=== PATIENT | male | born 1985 | race Caucasian/White ===

== ENCOUNTER 2018-07-02 15:04 | Emergency (ER) | payer MEDICAID, OTHER, SELFPAY ==
[2018-07-02] VITALS (8 sets, daily range): BP systolic 110–135; BP diastolic 53–83; PULSE 41–82; RESP 16–20; TEMP 36.8–37; O2SAT 97–100; BMI 19.5
--- NOTE | 2018-07-02 15:16 | CT_ITS ---
STUDY: CT ABDOMEN AND PELVIS WITH CONTRAST REASON FOR EXAM: Male, 32 years old. Abdominal pain. RADIATION DOSAGE (If Supplied By Facility): CTDIvol = ( ) mGy, DLP = ( ) mGycm TECHNIQUE: Transaxial images were obtained from the dome of the diaphragm to the symphysis pubis with oral contrast. 100 ml of Isovue 300 contrast was administered. Sagittal and coronal images were reconstructed. Individualized dose optimization techniques were used for this CT. COMPARISON: None. FINDINGS: The visualized lung bases are unremarkable. The visualized portions of the heart are within normal limits. Abnormal appearance of the liver which is heterogeneous and enlarged, and there is edema surrounding the hepatic radicles. This appearance is nonspecific but suggests hepatitis. Normal gallbladder and extrahepatic biliary system. Normal spleen. Normal pancreas. Normal bilateral adrenal glands. Normal right kidney. Normal left kidney. Evaluation of the GI tract is limited because although oral contrast was given, apparently the patient was not scanned with any delay in contrast is seen only in the stomach and duodenum. There are no dilated loops of bowel or evidence for obstruction but cannot exclude segments of bowel wall thickening. Appendix suboptimally seen but grossly negative. Normal abdominal aorta. Normal inferior vena cava. Normal retroperitoneum. Normal urinary bladder. There is enlargement of the prostate gland. Trace free fluid. Normal abdominal wall. Normal osseous structures. CT/Abdomen/Pelvis WITH Contrast IMPRESSION: Enlarged and probably edematous liver suspicious for hepatitis. Electronically Signed: Celso Herring MD at 17:47 EST , Service support ,
[2018-07-02] MEDS: 0.9% Normal Saline 1,000 ML 125 ML IV (15:42)
[2018-07-02] MEDS: Ondansetron 4 MG/2 ML Vial IV (15:42)
[2018-07-02] MEDS: HYDROmorphone 1 MG/ML Syringe IV ×3 (15:43→19:44)
[2018-07-02 15:50] LABS: Absolute Lymphocyte Count 0.96 X10^3/ul (0.83-4.51); Absolute Neutrophil Count 10.8 X10^3/uL (2.0-7.7); Basophil# 0.02 X10^3/uL; Basophil% 0.2 % (0-1); Eosinophil# 0.02 X10^3/uL; Eosinophils% 0.2 % (0-5); Hematocrit 44.3 % (40-54); Hemoglobin 15.2 g/dl (13.0-16.5); Lymphocyte # 0.96 X10^3/ul (4.0); Lymphocyte % 7.8 % (19-41); Mean Corp Hgb Conc 34.3 g/gl (32-36); Mean Corpuscular Hgb 33.3 pg (27.0-32.0); Mean Corpuscular Volume 96.9 fL (80-94); Mean Platelet Vol. 9.5 fl (6.2-12.0); Monocyte# 0.54 X10^3/uL; Monocyte% 4.4 % (0-10); Neutrophil # 10.82 X10^3/uL (2.7-7.7); Neutrophil % 87.2 % (47-70); Platelet Count 357 K/mm3 (150-450); RBC Distribution Width CV 11.8 % (11.6-14.6); RBC Distribution Width SD 41.6 fl (35.1-43.9); Red Blood Count 4.57 M/mm3 (4.6-6.2); White Blood Count 12.4 K/mm3 (4.4-11.0)
[2018-07-02 15:54] LABS: POSITIVE COUNT NO; POSITIVE DIFFERENTIAL NO; POSITIVE MORPHOLOGY NO
[2018-07-02 16:06] LABS: ALB/GLOB Ratio 1.3 RATIO (0.9-2.4); AST(SGOT) 22 U/L (15-37); Alanine Aminotransfer ALT/SGPT 41 U/L (16-61); Albumin, Serum 4.5 g/dL (3.2-5.0); Alkaline Phosphatase 88 U/L (45-117); Anion Gap 7 (5-15); BUN 9 mg/dL (7-18); BUN/Creat Ratio 12.4 RATIO (10-20); Calcium,Total 9.4 mg/dL (8.5-10.1); Chloride 107 mmol/L (98-107); Creatinine, Serum 0.73 mg/dL (0.70-1.30); EST Glomerular Filtration Rate 131 mL/min (>60); Est Glom Filt Rate - Afr Amer 158 mL/min (>60); Estimated Creatinine Clearance 146.37 ml/min; Globulin 3.4 g/dL (2.2-4.2); Glucose 136 mg/dL (74-106); Lipase 101 U/L (73-393); Potassium 4.2 mmol/L (3.5-5.1); Protein, Total 7.9 g/dL (6.4-8.2); Sodium Level 142 mmol/L (136-145)
--- NOTE | 2018-07-02 16:17 | ED.RN ---
[facility] 2.[address] CALL[address] THE LAB. DR GIVENS AWARE
[2018-07-02 16:18] LABS: Lactic Acid 2.2 mmol/L (0.4-2.0)
--- NOTE | 2018-07-02 18:12 | US_ITS ---
STUDY: ABDOMINAL ULTRASOUND - RIGHT UPPER QUADRANT REASON FOR VISIT: Male, 32 years old. Upper abdominal pain. TECHNIQUE: Ultrasound evaluation of the right upper quadrant was performed with real-time and static betancourt-scale imaging. TECHNICAL QUALITY: Adequate. COMPARISON: None. FINDINGS: Liver: The liver measures 20.1 cm. There is normal echogenicity of the liver. The bile ducts are within normal limits. There is hepatic color flow. The direction of portal flow is hepatopetal. There is no demonstrated mass lesion. Gallbladder: Normal distended gallbladder. The gallbladder wall measures 2.0 mm. There is a negative sonographic Moore's sign. There is trace pericholecystic fluid. There are no gallstones. Common Bile Duct (C.B.D.): The common bile duct measures 3.2 mm. Pancreas: Normal size of the head, body and tail of the pancreas. There is normal echogenicity of the pancreas. There is no demonstrated pancreatic mass or cyst. Right Kidney: Normal size of the right kidney. The right kidney measures 12.7 cm in length. Normal renal cortex.There is no demonstrated renal mass or cyst. There is no right hydronephrosis. US/Gallbladder IMPRESSION: Trace pericholecystic fluid, this may be reactive. Electronically Signed: Radha Aparicio MD at 19:13 EST Tel , Service support ,
[2018-07-02 19:39] LABS: Bacteria 0 SEEN /hpf (None Seen); Mucous, Urine 0 SEEN /hpf (<or=2+); Red Blood Cells-Urine 0 SEEN /hpf (0-5)
[2018-07-02 19:42] LABS: Color, Urine Yellow (Yellow); Glucose, Dipstick Normal (Normal); Ketone-Dipstick 5 mg/dl (Negative); Leukocyte Esterase-Dipstick 25 /ul (Negative); Nitrite-Dipstick Negative (Negative); Occult Blood-Urine Negative /ul (Negative); Protein-Dipstick 15 mg/dl (Negative); Specific Gravity, Urine 1.005 (1.002-1.030); Urine Bilirubin Dipstick Negative (Negative); Urine Clarity Clear (Clear); Urine Urobilinogen 1 mg/dl (Normal)
[2018-07-02 19:43] LABS: Reflex Lactate? Y
[2018-07-02 19:54] LABS: Squamous Epithelial Cells - UA 0-5 SEEN /hpf (0-5); White Blood Cells 0-5 SEEN /hpf (0-5)
--- NOTE | 2018-07-02 20:21 | ED.VISSUMM ---
- ER Visit Summary Date of Service: 07/02/18 Chief Complaint: [Abdominal pain] History of Present Illness: The patient is a 32 M [presents with abdominal pain that started around 8 or 9 AM this morning. Patient states it gradually worsened and became severe. Patient rates his pain as an 8 out of 10 currently. Patient states that he vomited 5-6 times. Patient denies any diarrhea. Denies any fever. Patient is never had pain like this before. Patient has no medical history. Patient denies any urinary symptoms. He denies any blood in his stool or black tarry stools.] Physical Examination: [HEENT-PERRLA, EOMI. Cranial nerves II through XII grossly intact. TMs clear. Mucous membranes moist. No adenopathy. Cardiovascular-regular rate and rhythm without murmur or ectopy Lungs-clear to auscultation, chest wall stable without crepitus or subcu emphysema Abdomen-normoactive bowel sounds, soft. Patient has diffuse tenderness palpation with some guarding. No rebound, rigidity, or perineal signs. Extremities-intact ?4, normal range of motion, normal pulses, atraumatic] Test Results: [CBC with differential obtained showed a white count 12.4, hemoglobin 15, hematocrit 44, platelets 357. Chemistries unremarkable. LFTs were unremarkable other than a slightly elevated total bilirubin of 1.8. Lipase was 101. Lactate was elevated 2.2. CT scan of the abdomen pelvis showed enlarged and edematous liver suspicious for hepatitis. Ultrasound of the gallbladder was obtained after discussing case with hospitalist which showed a normal gallbladder and only trace pericholecystic fluid which may be reactive.] Emergency Department Course and Treatment: [Patient was medicated with Dilaudid and Zofran multiple times. Patient continues to complain of significant pain. Initially I discussed case with hospitalist to admit patient here who asked that I discussed case with general surgeon on-call. I spoke with Dr. Prieto who asked that we transfer patient to tertiary care center. Patient would like to go to [facility]. I discussed case with [facility] who accepted transfer of patient.] Treatment Plan: [Transfer to [facility]] Disposition: [Transfer] Impression: [Abdominal pain-etiology uncertain Intractable abdominal pain Abnormal appearance of liver on CT scan] This note was generated with [employer] software. It may contain incorrect words, spelling, and punctuation that were not noted in review of the chart prior to signing ED Disposition - Plan for ED Patient: Chief Complaint: Abd Pain Referrals: [facility] [Primary Care Provider] -
--- NOTE | 2018-07-02 20:24 | ED.DCSUM_ITS ---
- ER Visit Summary Date of Service: 07/02/18 Chief Complaint: [Abdominal pain] History of Present Illness: The patient is a 32 M [presents with abdominal pain that started around 8 or 9 AM this morning. Patient states it gradually worsened and became severe. Patient rates his pain as an 8 out of 10 currently. Patient states that he vomited 5-6 times. Patient denies any diarrhea. Denies any fever. Patient is never had pain like this before. Patient has no medical history. Patient denies any urinary symptoms. He denies any blood in his stool or black tarry stools.] Physical Examination: [HEENT-PERRLA, EOMI. Cranial nerves II through XII grossly intact. TMs clear. Mucous membranes moist. No adenopathy. Cardiovascular-regular rate and rhythm without murmur or ectopy Lungs-clear to auscultation, chest wall stable without crepitus or subcu emphysema Abdomen-normoactive bowel sounds, soft. Patient has diffuse tenderness palpation with some guarding. No rebound, rigidity, or perineal signs. Extremities-intact ?4, normal range of motion, normal pulses, atraumatic] Test Results: [CBC with differential obtained showed a white count 12.4, hemoglobin 15, hematocrit 44, platelets 357. Chemistries unremarkable. LFTs were unremarkable other than a slightly elevated total bilirubin of 1.8. Lipase was 101. Lactate was elevated 2.2. CT scan of the abdomen pelvis showed enlarged and edematous liver suspicious for hepatitis. Ultrasound of the gallbladder was obtained after discussing case with hospitalist which showed a normal gallbladder and only trace pericholecystic fluid which may be reactive.] Emergency Department Course and Treatment: [Patient was medicated with Dilaudid and Zofran multiple times. Patient continues to complain of significant pain. Initially I discussed case with hospitalist to admit patient here who asked that I discussed case with general surgeon on-call. I spoke with Dr. Prieto who asked that we transfer patient to tertiary care center. Patient would like to go to [facility]. I discussed case with [facility] who accepted transfer of patient.] Treatment Plan: [Transfer to [facility]] Disposition: [Transfer] Impression: [Abdominal pain-etiology uncertain Intractable abdominal pain Abnormal appearance of liver on CT scan] This note was generated with [employer] software. It may contain incorrect words, spelling, and punctuation that were not noted in review of the chart prior to signing ED Disposition - Plan for ED Patient: Chief Complaint: Abd Pain Referrals: [facility] [Primary Care Provider] -
[2018-07-02 22:32] LABS: Lactic Acid 1.8 mmol/L (0.4-2.0)
--- OUTSIDE RECORDS SUMMARY | 2018-08-18 13:12 | XMS RPT_ITS ---
:1985 Author Organization OH[facility] Care Team Providers Name Role Phone [facility] Unavailable Ungur, Remus Attending Unavailable Isckarus, Mansour Attending [facility] [place] [facility] Un[facility] Isckarus, Mansour Attending [facility] Unavailable Isckarus, Mansour Consulting Unavailable Ana Maria Lynch Referring Unavailable Isckarus, Mansour Attending [facility] Unavailable Isckarus, Mansour Consulting Unavailable OFGUMAROWUJOSECASE Admitting Unavailable OFUNGWU, CASE Attending Unavailable UNGUR, REMUS A Referring Unavailable GLORIA ROCHA Consulting Unavailable OFUNGPratimaU, CASE Admitting Unavailable OFUNGDOLORES, CASE Attending Unavailable IMCA Referring Unavailable GARLAND KILPATRICK Primary Care Unavailable Azam ROCHA Consulting Unavailable PROBLEMS PROBLEMS DATE TYPE CONDITION / CODE ATTENDING STATUS SOURCE 08/10/2018 Unknown D75.89 - Other Isckarus, Active Adah specified [facility] blood and Repository blood-forming organs / D75.89(ICD-10) 08/10/2018 Unknown E80.6 - Other Isckarus, Active Adah disorders of [facility] metabolism / Repository E80.6(ICD-10) 08/10/2018 Unknown Z83.2 - Family Isckarus, Active Adah history of Counts include 234 beds at the [facility] blood and Repository blood-forming organs and certain disorders involving the immune mechanism / Z83.2(ICD-10) 07/02/2018 Active Unknown / OFUNGWU, Active [facility] UNK(Unknown) [facility] Repository 07/02/2018 Admitting Unknown / OFUNGWU, Active [facility] diagnosis UNK(Unknown) [facility] Repository PROCEDURES PROCEDURES No Procedure Records FoundRESULTS RESULTS ONCOLOGY VISIT REPORT Observed: 08/11/2018 Status: F Source: [place] 12:22 PM [facility] [place] Medical Oncology [address] [place] [address] OFFICE VISIT Date of Service: 08/11/18 1206 MR#: [id number] Acct: [id number] Name: SATURNINO QUINONEZ Rep #: [id number] : 1985 From: Kathleen Gonzalez MD Age/Sex: 32/M Location: OMD Status: Signed - Problem List (1) Macrocytosis Status: Acute (2) Family history of hereditary spherocytosis Status: Chronic Comment: Negative hemolysis workup in July 2018 - Date of Service Date of Service:: 08/11/18 - Chief Complaint Abnormal blood work - History of Present Illness Patient is a 32-year-old, who was hospitalized at [facility] in June of 2018 with an episode of abdominal pain. No specific diagnosis was made. The patient was noted to have a macrocytosis and a bilirubinemia. Patient reports a history of hereditary spherocytosis affecting his ankle on his mother's side. He has no prior history of anemia or blood transfusion, he father at the 9-year-old daughter not anemic. He denied excessive alcohol consumption since he left service . - Past Medical/Social History Social History Smoking Status Current every day smoker Review of Systems Comment: See my note of August 03, 2018 Vital Signs Height 6 ft 3.5 in Weight: 75.568 kg Weight in Pounds 166.6 lbs Pulse Ox 100 - Physical Exam General: Alert, Oriented x3, No apparent distress, - - ote of August 03, 2018 For a full exam see my n Laboratory Data: Labs reviewed in EMR Laboratory Tests WBC Hgb Hct MCV Plt Count Absolute Neuts (auto) Retic Count Assessment and Plan 32-year-old male with a family history of hereditary spherocytosis (uncle on mother side) noted during a recent hospitalization to have a macrocytosis with a mild hyperbilirubinemia. Plan: 1. Evaluation in July 2018 shows no anemia nor any evidence to suggest hemolysis. No further workup indicated from hematology. 2. Combined bilirubinemia (direct and indirect) Consistent with hepatic origin, no further workup from hematology indicated . 3. Mild macrocytosis in absence of cytopenias Suggestive of a chronic hepatic disease. Patient has a past history of excessive alcohol consumption and reports he has Cut down significantly to occasional since he left service. Defer to primary care for any further management. No recommendations from hematology apart from complete abstinence from alcohol and other potentially toxic recreational use or exposure. Impression and plan discussed with patient. No further followup was hematology indicated Medications: Prescriptions This Visit Medication Instructions Recorded Famotidine [Acid Water Treatment Technician] 10 mg PO DAILY 08/03/18 Multivitamin [Multiple Vitamins] 1 each PO DAILY 08/03/18 Primary Care Provider: [facility] Referring Provider: 08/11/18 1222 <Electronically signed by Kathleen Gonzalez MD> Date Kathleen Gonzalez MD Cosigner Signature: Date (if applicable) CC: Ana Maria Cason DIRECT ANTIGLOBULIN Collected: 08/03/2018 Status: F Source: [place]UA[place] LONNY TABITHA 3:28 PM [facility] Order Comment: Reason for Laboratory Test . TYPE CODE TESTS RESULT OUT OF RANGE REFERENCE UNITS LAB B100.6950 NEGATIVE Normal DIRECT NEG LONNY= w/POLYSPECIF IC Performed By: #### B100.6650 #### [facility] [address] [place], [place], [id number] CBC W/DIFF, AUTOMATED Collected: 08/03/2018 Status: C Source: [place] 3:28 PM [facility] Order Comment: PATHOLOGY TO REVIEW SMEAR TO RULE OUT SHEROCYTOSIS TYPE CODE TESTS RESULT OUT OF RANGE REFERENCE UNITS LAB L100.1000 4.4-11.0 K/mm3 Normal WBC 7.3 LAB L100.1200 4.6-6.2 M/mm3 Low RBC 4.52 LAB L100.1300 13.0-16.5 g/dl Normal HGB 14.7 LAB L100.1400 40-54 % Normal HCT 44.2 LAB L100.1500 80-94 fL High MCV 97.8 LAB L100.1600 27.0-32.0 pg High MCH 32.5 LAB L100.1700 32-36 g/gl Normal MCHC 33.3 LAB L100.1810 11.6-14.6 % Low RDW CV 11.5 LAB L100.1820 35.1-43.9 fl Normal RDW SD 41.0 LAB L100.1900 150-450 K/mm3 Normal PLT 297 LAB L100.2000 6.2-12.0 fl Normal MPV 9.7 LAB L100.2100 47-70 % Normal NEUT% 63.8 LAB L100.2200 19-41 % Normal LY% 23.4 LAB L100.2300 0-10 % Normal MONO% 8.6 LAB L100.2400 0-5 % Normal EO% 3.7 LAB L100.2500 0-1 % Normal BASO% 0.4 LAB L100.2550 0.0-0.9 % Normal IM GRAN % 0.100 Result Comment: IG% - Immature Granulocytes (promyelocytes, myelocytes and metamyelocytes) > 1% indicates that a LEFT SHIFT is Present. LAB L100.2620 2.0-7.7 X10 3/uL Normal Absolute Neut 4.7 LAB L100.2720 0.83-4.51 X10 3/ul Normal Absolute Lymph 1.71 LAB L100.9900 Normal PATH REV Reviewed Result Comment: RBC - Macrocytosis Spherocytes are no seen. WBC - unremarkable. WBC count is compatible as reported above. Platelets - Adequate Clinical correlation necessary. Tomas Marroquin M.D. 08/04/18 This case was reviewed with Dr. Fernandez who concurs with the above diagnosis. AMENDED REPORT 08/04/18 1419 PATH REV previously reported as: November Performed By: #### L100.0100, L100.9950 #### [facility] [address] [place], [address] RETIC PANEL Collected: 08/03/2018 Status: F Source: [place] 3:28 PM [facility] Order Comment: PATHOLOGY TO REVIEW SMEAR TO RULE OUT SHEROCYTOSIS TYPE CODE TESTS RESULT OUT OF RANGE REFERENCE UNITS LAB L101.0000 0.5-1.5 % High RETIC 2.00 LAB L101.0060 3.00-15.90 % IM Normal RET FRACTION 5.50 LAB L101.0090 30-35 pg Normal RET-HE 34.4 LAB L101.0110 1.0-7.9 % Normal IPF 2.3 Result Comment: Low PLT + Low IPF suggest a bone marrow production disorder Low PLT + high IPF suggests peripheral destruction (e.g.ITP, TTP, HIT, DIC, autoimmune) or bone marrow recovery Trending of serial IPF measurements is recommended when evaluating for bone marrow respones Value above normal range indicates an increase in RBC cellular response from bone marrow. Performed By: #### L100.0100, L100.9950 #### [facility] [address] [place], [address] VITAMIN B12 Collected: 08/03/2018 Status: F Source: [place] 3:28 PM [facility] Order Comment: Reason for Laboratory Test . TYPE CODE TESTS RESULT OUT OF REFERENCE UNITS RANGE LAB L503.0105 211-911 pg/mL High Vitamin B12 934 Performed By: #### L503.0105 #### [facility] [address] [place], [address] COMPREHENSIVE METABOLIC Collected: 08/03/2018 Status: F Source: [facility] 3:28 PM [facility] Order Comment: Reason for Laboratory Test . Serial Specimen #1, #2 or #3? 1 Is Patient Taking Vitamins or Folic Acid Supplements? N TYPE CODE TESTS RESULT OUT OF RANGE REFERENCE UNITS LAB L501.0100 74-106 mg/dL Normal GLU 97 Result Comment: Please note revised GLUCOSE reference range effective 2017. LAB L501.1000 7-18 mg/dL Normal BUN 9 LAB L501.1100 0.70-1.30 mg/dL Normal CREAT,SERUM 0.86 Result Comment: The validity of the calculated GFR AND GFRAA in patients over 70 years has not been determined. Clinical correlation is essential. LAB L501.1110 >60 mL/min Normal EST GFR 108 Result Comment: Non- GFR Calc LAB L501.1115 >60 mL/min Normal EST GFR - AA 130 Result Comment: GFR Calc LAB L501.1255 ml/min Normal Estimated CRCL 129.36 LAB L501.1300 10-20 RATIO BUN/CRE Normal 10.5 LAB L501.1500 6.4-8. g/dL 2 T PROT Normal 7.3 LAB L501.1800 3.2-5. g/dL 0 ALB Normal 4.2 LAB L501.1950 2.2-4. g/dL 2 GLOB Normal 3.1 LAB L501.2000 0.9-2. RATIO 4 A/G Normal 1.4 LAB L501.2200 8.5-10 mg/dL .1 CA Normal 8.7 LAB L501.4100 15-37 U/L AST Normal 29 LAB L501.4305 45-117 U/L ALK P Normal 85 LAB L501.4405 16-61 U/L ALT Normal 61 LAB L501.4600 0.20-1 mg/dL High .00 T BILI 1.40 LAB L501.5300 136-14 mmol/L 5 NA Normal 140 LAB L501.5600 3.5-5. mmol/L 1 K Normal 4.0 LAB L501.5900 98-107 mmol/L CL Normal 103 LAB L501.6100 21.0-3 mmol/L 2.0 CO2 Normal 28.0 LAB L501.6200 5-15 GAP Normal 9 Performed By: #### L500.4050, L501.4700, L501.9520, L504.2610, L506.0250 #### [facility] [address] [place], [place], [id number] BILIRUBIN, DIRECT Collected: 08/03/2018 Status: F Source: [place] 3:28 PM [facility] Order Comment: Reason for Laboratory Test . Serial Specimen #1, #2 or #3? 1 Is Patient Taking Vitamins or Folic Acid Supplements? N TYPE CODE TESTS RESULT OUT OF RANGE REFERENCE UNITS LAB L501.4700 0.00-0.30 mg/dL High D BILI 0.53 Performed By: #### L500.4050, L501.4700, L501.9520, L504.2610, L506.0250 #### [facility] [address] [place], [address] THYROID STIM HORMONE Collected: 08/03/2018 Status: F Source: [place] (TSH) 3:28 PM [facility] Order Comment: Reason for Laboratory Test . Serial Specimen #1, #2 or #3? 1 Is Patient Taking Vitamins or Folic Acid Supplements? N TYPE CODE TESTS RESULT OUT OF RANGE REFERENCE UNITS LAB L501.9520 0.358-3.74 uIU/mL Normal TSH 1.05 Performed By: #### L500.4050, L501.4700, L501.9520, L504.2610, L506.0250 #### [facility] [address] [place], [place], [id number] LDH Collected: 08/03/2018 Status: F Source: [place] 3:28 PM [facility] Order Comment: Reason for Laboratory Test . Serial Specimen #1, #2 or #3? 1 Is Patient Taking Vitamins or Folic Acid Supplements? N TYPE CODE TESTS RESULT OUT OF RANGE REFERENCE UNITS LAB L504.2610 87-241 U/L Normal LDH 139 Performed By: #### L500.4050, L501.4700, L501.9520, L504.2610, L506.0250 #### [facility] [address] [place], [place], [address] FOLATES, (FOLIC ACID) Collected: 08/03/2018 Status: F Source: [place] 3:28 PM [facility] Order Comment: Reason for Laboratory Test . Serial Specimen #1, #2 or #3? 1 Is Patient Taking Vitamins or Folic Acid Supplements? N TYPE CODE TESTS RESULT OUT OF RANGE REFERENCE UNITS LAB L506.0250 3.1-55.4 ng/mL Normal FOLATES 26.80 Performed By: #### L500.4050, L501.4700, L501.9520, L504.2610, L506.0250 #### [facility] [address] [place], [address] HAPTOGLOBIN Collected: 08/03/2018 Status: F Source: [place] 3:28 PM [facility] Order Comment: Reason for Laboratory Test . TYPE CODE TESTS RESULT OUT OF RANGE REFERENCE UNITS LAB L3100.1850 34-200 mg/dL Normal HAPTOGLOB 1628 132 Result Comment: Performed at: - [facility] [id number] Stair Builder: Richard Elizabeth PhD, Phone: [phone] Performed By: #### L3100.1850 #### [facility] (refer to report for specific site) refer to report for address and phone number ONCOLOGY HISTORY AND Observed: 08/03/2018 Status: F Source: [place] PHYSICAL 3:20 PM [facility] Medical Records Department [address] [facility] [place] [address] History and Physical 08/03/18 1450 MR#: [id number] Acct: [id number] Name: SATURNINO QUINONEZ Rep #: [id number] : 1985 32 From: Kathleen Gonzalez MD PCP: [facility] [place] Status: REG RCR Y Location: OMD - Problem List (1) Macrocytosis Status: Acute (2) Bilirubinemia Status: Acute (3) Family history of hereditary spherocytosis Status: Chronic Subjective Date of Service:: 08/03/18 Chief Complaint: Abnormal CBC History of Present Illness: Patient is a 32-year-old, who was hospitalized at [facility] in June of 2018 with an episode of abdominal pain. No specific diagnosis was made. The patient was noted to have a macrocytosis and a bilirubinemia. Patient reports a history of hereditary spherocytosis affecting his ankle on his mother's side. He has no prior history of anemia or blood transfusion, he father at the 9-year-old daughter not anemic. He denied excessive alcohol consumption since he left service . Power of School Program Director: No Living Will: No Health History: Past Medical History (Last Reviewed 08/03/18 @ 14:47 by Charity Miranda) Hearing problem (Acute) Post traumatic stress disorder (PTSD) (Acute) [place] teeth extracted (Acute) Family History (Last Reviewed 08/03/18 @ 14:49 by Charity Miranda) Uncle Hereditary spherocytosis Brother Anxiety PTSD (post-traumatic stress disorder) Allergies/Adverse Reactions: Allergy/AdvReac Type Severity Reaction Status Date / Time No Known Allergies Allergy Verified 08/03/18 14:49 Risk Factors Social History Smoking Status Current every day smoker Tobacco Risk Data: Tobacco Risk Smoking Status Current every day smoker Type of tobacco: Smokeless tobacco usage: Items/Day: Year started: Years used: Counseled to quit/cut down: Reason for no counseling performed: Reason for no pharmacotherapy: Tobacco use comments: Passive smoke exposure: Substance Risk Drug use: Caffeine use [drinks/day]: Alcohol use: Type of alcohol: Drinks per day: Has patient felt the need to cut down: Has the patient been annoyed by complaints: Has the patient felt guilty about drinking: Has the patient needed an eye testing tech in the mornings: Comments: Review of Systems Constitutional:: Denies: Fever, Sweats, Weight loss, Appetite change, Chills Cardiovascular:: Denies: Chest pain, Palpitations, Dyspnea on exertion, Orthopnea, PND, Shortness of breath Respiratory: Denies: Cough, Hemoptysis, Shortness of Breath, Wheezing Gastrointestinal:: Denies: Abdominal pain - The episode of June of 2018 resolved without specific treatment, Nausea, Vomiting, Diarrhea, Constipation, Hematochezia Genitourinary: Denies: Dysuria, Hematuria, 15, Flank pain Musculoskeletal:: Denies: Back pain, Myalgia, Arthralgia Skin: Denies: Rash, Skin Changes, Wounds Neurological:: Denies: Headache, Dizziness, Visual changes, Tinnitus, Hearing loss Psychiatric: Denies: Anxiety, Depression, Homicidal Ideations, Suicidal Ideations - Physical Exam General: Alert, Oriented x3, No apparent distress, - - ECOG 0 HEENT: Atraumatic, PERRLA, EOMI, Normocephalic Oropharynx:: Dry mucosa Neck:: Supple, Trachea midline. Negative for: JVD, bilateral Cardiac:: Regular rate, Regular rhythm, Normal S1, Normal S2. Negative for: Murmur Lungs: Clear to auscultation, Excusion symmetrical. Negative for: Rhonchi, Wheezes Abdomen:: Soft, Non-tender, Non-distended. Negative for: Hepatosplenomegaly Extremities:: Negative for: Cyanosis, Edema Neurological: Neuro grossly intact Skin:: Negative for: Lesions, Rash, Petechiae, Ecchymosis Psychiatric:: Appropriate affect, Euthymic Lymphatics:: Negative for: Cervical lymphadenopathy, Supraclavicular lymphadenopathy Laboratory Data: Recent CBC and CMP June of 2018 wished her [facility] [place]. Notably he has a mild Neutrophilic leukocytosis, no immature forms seen, normal H and H was a mildly elevated MCV and a mild hyperbilirubinemia at total bilirubin 1.8. Diagnostic Data: CT scan of the abdomen and pelvis June 2018 notably showed no splenomegaly but questioned hepatitis Assessment and Plan 32-year-old male was a family history of hereditary spherocytosis (uncle on mother side) nor personal history of anemia, noted during her recent hospitalization to have a macrocytosis with a mild hyperbilirubinemia. Plan: 1. Initial evaluation for hemolysis Including update CBC, peripheral smear review, retic. count, haptoglobin , CMP With bilirubin fractionation, LDH and direct Lonny test. If there is evidence for chronic hemolysis confirmatory testing for hereditary spherocytosis would be indicated. 2. In absence of Anemia, even if he has hereditary spherocytosis no intervention from hematology is indicated. Impression and plan discussed with patient Primary Care Provider: [facility] Referring Provider: 08/03/18 1520 <Electronically signed by Kathleen Gonzalez MD> Date Kathleen Gonzalez MD Cosigner Signature: Date (if applicable) CC: [facility]; ana maria cason; Kathleen Gonzalez MD Signed CNDS Observed: 07/03/2018 Status: COMPLETED Source: [facility] 6:27 PM CLINIC OTHER CAMPUS REPOSITORY HNO ID: [id number] Author: Hank Sanchez DO Service: Hospital Medicine Author Type: Physician Type: Discharge Summaries Filed: 07/03/2018 6:28 PM Note Text: DISCHARGE SUMMARY PATIENT NAME: Saturnino M Miranda Code Status: Not on file Highest Readmission Risk Score: 7 The 30 day readmissions risk score is derived from an internally validated risk model which evaluates patient level characteristics, utilization history, medication orders and lab results up until the day of discharge. Patients with a score of 40 or above are considered highest risk for readmission. Specific patient level drivers will be listed at the bottom of the summary. Admission Information Admission Information ADMIT DATE: 07/02/2018 DISCHARGE DATE: 07/03/2018 MY DOCTORS AND MEDICAL TEAM: My Main Hospital Doctor: Case Canseco Primary Care Provider: Garland Kilpatrick MD My Medical Team Members: Treatment Team: Attending Provider: Case Canseco Primary Service: Juliano Weiner Consulting: Gloria Rocha MY CONDITION AT DISCHARGE: Good REASON I WAS IN THE HOSPITAL: Nausea/emesis, Macrocytic anemia SUMMARY OF WHAT HAPPENED WHILE I WAS IN THE HOSPITAL: The patient presented with abdominal pain, nausea and emesis. He was found to have abnormal CT with liver appearing edematous. He was seen by GI team who evaluated and reviewed imaging and based on labs did not feel this represented hepatitis. He had additional labs sent and was asked to follow up as an outpatient with [facility] to establish PCP. His symptoms had completely resolved prior to discharge. OTHER PROBLEMS/DIAGNOSIS: Active Problems: Nicotine use disorder, F17.2 Resolved Problems: Hepatitis Jaundice Abdominal pain Dehydration OPERATIONS PERFORMED WHILE IN THE HOSPITAL: None IMPORTANT TEST/PROCEDURES: CT scan abdomen TEST RESULTS NOT AVAILABLE AT THIS TIME: There is outstanding blood work including B12/folate/iron studies/antismooth muscle antibody that should be followed up with PCP. Discharge Disposition Discharge Disposition: Home With Self Care Activity When You Leave the Hospital Resume pre-hospital activity Diet Instructions Resume your pre-hospital diet Call Your Doctor If There is an unusual odor from the wound area There is severe pain at the operative site You have a severe headache You have lightheadedness, fainting, or confusion You have persistent nausea/vomiting over 24 hours You have persistent or heavy bleeding You have swollen glands or cold and clammy skin Your temperature is greater than 101F Follow Up Appointments Follow-Up Appointment Call to schedule [facility] to establish PCP care. Follow up lab work. When: In: Comment - [facility] Patient/Parents to call for appointment?: Yes Christine Bishop [phone] [address] PCP Requested Referral Additional Provider to Provider Information: No notes on file FOLLOW-UP APPOINTMENTS ALREADY SCHEDULED WITH A [facility] PROVID[facility]: No future appointments. ALLERGIES No Known Allergies DISCHARGE MEDICATION: There are no discharge medications for this patient. Discharge Physical Exam: VITAL SIGNS: BP 106/51 Pulse 61 Temp 36.7 ?C (98.1 ?F) (Oral) Resp 18 Ht 193 cm (6' 3.98) Wt 77.3 kg (170 lb 6.7 oz) SpO2 99% BMI 20.75 kg/m? GENERAL: Alert, no distress, cooperative SKIN: Skin color, texture, turgor normal. No rashes or lesions. HEAD/SINUSES: No significant findings EYES: PERRLA, EOMI EARS: External ears normal, canals clear NOSE: Nares normal. Septum midline. OROPHARYNX: Lips, mucosa, and tongue normal. Teeth and gums normal. Oropharynx normal. NECK: No jugulovenous distention, No carotid bruits, Carotid pulse normal contour, Supple BACK: Back symmetric, Normal curvature, ROM normal, No CVAT. LUNGS: Lungs clear to auscultation, Good diaphragmatic excursion CARDIAC: Normal S1 and S2; no rubs, murmurs, or gallops ABDOMEN: Abdomen soft, non-tender, BS normal, No masses or organomegaly EXTREMITIES: Extremities normal, no deformities, no edema NEURO: Sensation grossly intact, Cranial nerves II-XII intact Psych:normal mood/afffect The patient's risk for 30-day readmission is determined using the following contributing factors: Pt variables contributing to increased readmission risk: 7.6 First Resulted Calcium During Admission 6 Most Recent BUN Result 2 Active Medication Orders 1 Insurance - Medicaid 1 Discharge Disposition - Home 1 Active Anticoagulant TIME OF CARE: Discharge Management: I personally spent greater than 30 minutes involved in the discharge management of this patient. SIGNATURE: Hank Sanchez DO PAGER/CONTACT #: DATE: July 03, 2018 TIME: 6:27 PM RETICULOCYTE COUNT Collected: 07/03/2018 Status: F Source: [facility] 4:01 PM HEALTH SYSTEM REPOSITORY TYPE CODE TESTS RESULT OUT OF REFERENCE UNITS RANGE LAB RETCT(LOIN 1.0-2.2 % C) Reticulocyte High Ct 3.6 LAB RETAS(LOIN 0.026-0.095 mil/cmm C) Absolute High Reticulocyte 0.146 LAB IRF(LOINC) 2.3-13.4 % Immature Retic Fractions 12.0 LAB RETHE(LOIN 27.9-38.4 pg C) Retic High Hemoglobin 38.6 Equivalent Performed By: #### RETC1 #### [facility] [address] [place] [address] LD,TOTAL BLOOD Collected: 07/03/2018 Status: F Source: [facility] 4:01 HEALTH SYSTEM REPOSITORY TYPE CODE TESTS RESULT OUT OF RANGE REFERENCE UNITS LAB LDH(LOINC) 84-246 U/L LD,Total 135 Blood Performed By: #### LDH #### [place] [address] HAPTOGLOBIN Collected: 07/03/2018 Status: F Source: [facility] 4:[facility] REPOSITORY TYPE CODE TESTS RESULT OUT OF REFERENCE UNITS RANGE LAB HAP(LOINC) 30.0-200.0 mg/dL Haptoglobin 154.0 Performed By: #### HAP #### [place] [address] FERRITIN Collected: 07/03/2018 Status: F Source: [facility] 4:[facility] REPOSITORY TYPE CODE TESTS RESULT OUT OF REFERENCE UNITS RANGE LAB FERR(LOINC) 26.00-388.00 ng/mL High Ferritin 570.80 Performed By: #### FERR #### [place] [address] VITAMIN B12 Collected: 07/03/2018 Status: F Source: [facility] 4:01 HEALTH SYSTEM REPOSITORY TYPE CODE TESTS RESULT OUT OF REFERENCE UNITS RANGE LAB B12(LOINC) 193-986 pg/mL Vitamin B12 521 Performed By: #### B12 #### [place] [address] FOLATE Collected: 07/03/2018 Status: F Source: [facility] 4:01 HEALTH SYSTEM REPOSITORY TYPE CODE TESTS RESULT OUT OF REFERENCE UNITS RANGE LAB FOL(LOINC) 3.10-17.50 ng/mL High Folate 26.70 Performed By: #### FOL #### [place] [address] IRON % SATURATION Collected: 07/03/2018 Status: F Source: [facility] 4:01 PM HEALTH SYSTEM REPOSITORY TYPE CODE TESTS RESULT OUT OF REFERENCE UNITS RANGE LAB IRON(LOINC 65-175 ug/dL ) Iron Serum 65 LAB IBC(LOINC) 250-450 ug/dL Iron Binding Cap. 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 No Advance Directive: Current Advance Directive: None Mechanical Insulator Attempted to Assist with AD Completion: Yes Action: Patient Unwilling Health Literacy: 1. How often do you need to have someone help you when you read instructions, pamphlets, or other written material from your doctor or pharmacy? Never - 1 2. How confident are you filling out medical forms by yourself? Extremely - 1 If Patient scores > 3 on either question, the following interventions were put into place: Patient did not score > 3 FUNCTIONAL AND COGNITIVE/BEHAVIORAL PRIOR TO ADMISSION: Baseline Mental Status: Alert AND Oriented, Person, Place , Time and Situation Functional Status: Independent Does Patient Currently Receive Any Community Services or Home Care? None Equipment Prior to Admission: None Has the Patient Been in a Care Home Facility in the Past 30 days? N/A SOCIAL: Living Arrangement: Home Lives With: Daughter (9 yrs old) Financial Resources: Disabled Primary Contact: Extended Emergency Contact Information Primary Emergency Contact: Shelbi Quinonez Relation: Mother Supportive: Yes Other Important Patient Contacts: None Caregiver Assessment: Caregiver is ready, willing and able to meet the patient's needs as recommended by the inter-professional team? No Caregiver Needed Patient's transition needs and plan for meeting these needs: Does the patient have an acute stroke diagnosis, or has the patient had a stroke during this admission? No Medication Adherence: I am convinced of the importance of my prescription medication: Agree mostly - 0 I worry that my prescription medication will do more harm than good to me Disagree mostly - 0 I feel financially burdened by my [id number] expenses for my prescription medication: Disagree mostly -0 Patient is categorized as low risk < 2 Are you interested in bedside delivery of your medications? No Food Concerns: In the Last Month, Have You had Trouble Getting Food? No trouble getting food During the Last Month, Have You Worried Whether Your Food Would Run Out Before You Had Enough Money to Buy More? No Is the Patient Psychosocially Complex? 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 Per pt, no PCP. Would prefer to see MD in [place] if possible. Discuss with MD. Pt states he is and his mother, Shelbi Quinonez, is his legal NOK. Pt declined to complete advance directives at this time. SW to follow for d/c needs SIGNATURE: ILYA Campbell PATIENT NAME: Saturnino Quinonez DATE: July 03, 2018 TIME: 11:38 AM PAGER/CONTACT #: [phone] THERAPY NT Observed: 07/03/2018 Status: COMPLETED Source: [facility] 10:00 AM CLINIC OTHER CAMPUS REPOSITORY O ID: [id number] Author: Adilene Blank Service: Physical Therapy Author Type: Physical Therapist Type: Therapy (PT/OT/Speech/Resp) Filed: 07/03/2018 10:01 AM Note Text: PHYSICAL THERAPY MISSED VISIT SERVICE DATE: 07/03/2018 SERVICE TIME: 958 to 958 ROOM: [place] [address] Attempted Evaluation. Patient not seen due to has no needs . SIGNATURE: Adilene Blank PT PATIENT NAME: Saturnino Quinonez DATE: July 03, 2018 TIME: 10:00 AM CONSULT Observed: 07/03/2018 Status: COMPLETED Source: [facility] 9:35 AM CLINIC OTHER CAMPUS REPOSITORY O ID: [id number] Author: Gloria Rocha Service: Gastroenterology Author Type: Physician Type: Consults Filed: 07/03/2018 6:43 PM Note Text: INITIAL CONSULT GASTROENTEROLOGY SERVICE DATE: 07/03/2018 SERVICE TIME: 9:35 AM Consulting Service: Hospital medicine Opinion/advice regarding: jaundice/hepatitis Subjective HPI: This is a 32 year old male with PTSD and hereditary spherocytosis who presents with abdominal pain and vomiting. He states yesterday he woke up with sharp epigastric pain; he felt that going to the bathroom may relieve it however after passing stool he continued to have the pain. Several hours later, he developed nausea and vomiting. He states he vomited a lot yesterday. No blood or bile noted in his emesis. He tried to eat bread once but vomited it up, did not notice if it made his abdominal pain worse. He reports laying flat exacerbated his epigastric pain. It was severe enough he couldn't stand or climb stairs. He denies any recent travel or eating seafood recently, no IV drug use history, no illicit drug use otherwise. He denies jaundice or change in skin. He is sexually active, had 2 partners in the past year. He is regularly active and is an outdoors kind of person. He denies any fevers, chills, or night sweats. Has not noticed decreased appetite or unexpected weight change. No history of hepatitis or HIV. States has been vaccinated against Hepatitis B. He denies history of asthma/copd or lung disease. There is a significant family history for cancer but he is unsure what type. PAST MEDICAL HISTORY Diagnosis Date - PTSD (post-traumatic stress disorder) No past surgical history on file. No family history on file. Social History Substance Use Topics - Smoking status: Current Every Day Smoker Packs/day: 0.50 Years: 6.00 Types: Cigarettes - Smokeless tobacco: Not on file - Alcohol use 18.0 oz/week 12 Cans of Beer (12oz) per week MEDICATIONS: Prior to Admission Medications: No prescriptions on file. Current hospital medications: aluminum-magnesium hydroxide-simethicone 200-200-20 mg/5 mL 30 mL (MAALOX,MYLANTA,MAG-AL PLUS) 30 mL ORAL DAILY PRN docusate sodium 100 mg cap(s) (COLACE) 100 mg ORAL BID PRN heparin 5,000 Units injection 5,000 Units SUBCUTANEOUS q 8 H HYDROmorphone HCl 0.2 mg injection (DILAUDID) 0.2 mg INTRAVENOUS q 4 H PRN levoFLOXacin iv piggyback 750 mg in D5W 150 mL (LEVAQUIN) 750 mg INTRAVENOUS DAILY magnesium hydroxide 400 mg/5 mL 30 mL (MOM) 30 mL ORAL DAILY PRN NaCl 0.9% iv infusion 75 mL/hr INTRAVENOUS CONTINUOUS ondansetron (PF) 4 mg injection (ZOFRAN) 4 mg INTRAVENOUS q 6 H PRN ondansetron 4 mg tab(s) (ZOFRAN) 4 mg ORAL q 6 H PRN polyethylene glycol 3350 17 g packet (MIRALAX, GLYCOLAX) 17 g ORAL DAILY PRN ALLERGIES No Known Allergies GI SPECIFIC REVIEW OF SYSTEMS: Positive for abd pain and vomiting, resolved Negative for decreased appetite Negative for change in weight No alteration in bowel habits Denies bloody stools or black stools OTHER ROS: Negative for lightheadedness/dizziness, vision changes, hearing changes, sore throat, dysphagia, odynophagia, chest pain, shortness of breath, wheezing, cough. Objective PHYSICAL EXAM: BP 106/51 Pulse 61 Temp 36.7 ?C (98.1 ?F) (Oral) Resp 18 Ht 193 cm (6' 3.98) Wt 77.3 kg (170 lb 6.7 oz) SpO2 99% BMI 20.75 kg/m? GENERAL- AAO x 3, no distress HEENT: Moist mucus membranes, no carotid bruit. No ulcerations noted in mouth. LUNGS: Clear to auscultation bilaterally, no wheezes noted. Good air entry bilaterally CARDIAC: S1, S2 heard, no murmur appreciated ABDOMEN: Soft, tender to deep palpation of the right upper quadrant. No guarding or rigidity. Normal bowel sounds EXTREMITIES: No pedal edema, capillary refill good. DATA: Diagnostic Tests Reviewed for Today's Visit: Most recent labs and imaging results. Impression/Recommendations CT findings of hepatitis without laboratory correlation Macrocytic anemia Hypoalbuminemia Marijuana abuse Cocaine abuse Mild hyperbilirubinemia Hypoproteinemia without proteinuria or evidence of kidney injury Leukocytosis Hyperinflated lungs Plan: - will discuss results of CT abd with radiology, pancreatic head appears enlarged to me; discussed with radiology attending, pancreas appears normal - check GGT, alpha-1 antitrypsin (lungs look hyperinflated to me, suggestive of emphysema) - await acute hepatitis panel - check shantel and antismooth muscle abs - unsure whether this is true hepatitis Will discuss with Dr. Rocha Attending Note I evaluated the patient and personally participated in the stone components. I agree with the resident's findings and plan as documented and have discussed the case and management of the patient's care with the resident. Pt's epig pain, n/v has resolved. LFT's unimpressive. Outside CT and US reports reviewed. Liver on US described as nl. Pt to see hematology. Also should f/up w PCP, Christine hong. Signature: Gloria Rocha MD Date: 07/03/2018 Time: 6:33 PM SIGNATURE: Glen Grant MD PATIENT NAME: Saturnino Quinonez DATE: July 03, 2018 TIME: 9:35 AM PAGER/CONTACT #: [phone] MDRD GFR Collected: 07/03/2018 Status: F Source: [facility] 7:45 AM HEALTH SYSTEM REPOSITORY TYPE CODE TESTS RESULT OUT OF RANGE REFERENCE UNITS LAB GFRFN(LOINC >60mL/min/1.73m ) 2 eGFR >60 Result Comment: If the patient is , multiply the result by 1.210. Performed By: #### GFR #### [place] [address] HEMOGRAM/DIFF Collected: 07/03/2018 Status: F Source: [facility] 7:45 AM HEALTH SYSTEM REPOSITORY TYPE CODE TESTS RESULT OUT OF REFERENCE UNITS RANGE LAB WBC(LOINC) 4.23-9.07 thou/cmm WBC 8.74 LAB RBC(LOINC) 4.63-6.08 mil/cmm Low RBC 3.96 LAB HGB(LOINC) 13.7-17.5 g/dL Low Hgb 13.3 LAB HCT(LOINC) 40.1-51.0 % Low Hct 39.9 LAB MCV(LOINC) 83.2-95.6 fl MCV High 100.8 LAB MCH(LOINC) 25.7-32.2 pg MCH High 33.6 LAB MCHC(LOINC 32.3-36.5 % ) MCHC 33.3 LAB RDW(LOINC) 11.6-14.4 % RDW 11.6 LAB RDWSD(LOIN 36.1-45.8 fl C) RDW SD 42.2 LAB PLT(LOINC) 141-365 thou/cmm Platelet 312 LAB MPV(LOINC) 8.7-12.0 fl MPV 9.7 LAB SEG(LOINC) % Seg Neutrophil 64.3 LAB IGRE(LOINC % ) Immature Grans 0.50 LAB LYMPH(LOIN % C) Lymphocyte 24.4 LAB MNO(LOINC) % Monocyte 8.0 LAB EOSIN(LOIN % C) Eosinophil 2.3 LAB BASO(LOINC % ) Basophil 0.5 LAB SEGN(LOINC 1.78-5.38 thou/cmm ) Abs. High Neut (ANC) 5.62 LAB IGAB(LOINC 0.00-0.05 thou/cmm ) Abs Immature Grans 0.04 LAB LYMN(LOINC 0.84-2.85 thou/cmm ) Abs. Lymph 2.13 LAB MONON(LOIN 0.30-0.82 thou/cmm C) Abs. Worth 0.70 LAB EOSN(LOINC 0.04-0.54 thou/cmm ) Abs. Eosin 0.20 LAB BASON(LOIN 0.01-0.08 thou/cmm C) Abs. Baso 0.04 Performed By: #### CBCD1 #### [place] [address] COMPREHENSIVE PANEL Collected: 07/03/2018 Status: F Source: [facility] 7:45 AM HEALTH SYSTEM REPOSITORY TYPE CODE TESTS RESULT OUT OF REFERENCE UNITS RANGE LAB NA(LOINC) 136-145 mEq/L Sodium Blood 139 LAB K(LOINC) 3.5-5.1 mEq/L Potassium Blood 3.7 LAB CL(LOINC) 98-107 mEq/L Chloride Blood 106 LAB CO2(LOINC) 21-32 mEq/L CO2 Blood 28 LAB GLU(LOINC) 70-99 mg/dL Glucose Blood 98 LAB BUN(LOINC) 7-18 mg/dL Low BUN Blood 6 LAB CREA(LOINC 0.67-1.17 mg/dL ) Creatinine Blood 0.78 LAB CA(LOINC) 8.5-10.1 mg/dL Low Calcium Blood 8.2 LAB ALB(LOINC) 3.4-5.0 g/dL Albumin Blood 3.5 LAB TP(LOINC) 6.4-8.2 g/dL Total Protein 6.4 LAB AST(LOINC) 9-37 U/L AST-SGOT Blood 16 LAB ALT(LOINC) 12-78 U/L ALT-SGPT Blood 34 LAB ALKP(LOINC 46-116 U/L ) Alk Phosphatase 62 LAB BILIT(LOIN 0.2-1.0 mg/dL C) Total High Bilirubin 1.6 LAB ANGAP(LOIN 8-16 C) Anion Gap 9 Performed By: #### P14 #### [place] [address] DIRECT BILIRUBIN Collected: 07/03/2018 Status: F Source: [facility] 7:45 AM HEALTH SYSTEM REPOSITORY TYPE CODE TESTS RESULT OUT OF REFERENCE UNITS RANGE LAB DBIL(LOINC 0.00-0.20 mg/dL ) High Direct 0.55 Bilirubin Performed By: #### DBIL #### [place] [address] GGT Collected: 07/03/2018 Status: F Source: [facility] 7:45 AM HEALTH SYSTEM REPOSITORY TYPE CODE TESTS RESULT OUT OF RANGE REFERENCE UNITS LAB GT(LOINC) 15-85 U/L GGT 42 Performed By: #### GT #### [place] [address] [id number] Collected: Status: F Source: [facility] 07/03/2018 7:45 AM [facility] SYSTEM REPOSITORY TYPE CODE TESTS RESULT OUT OF RANGE REFERENCE UNITS LAB AAT(LOINC) 90-200 mg/dL 142 [id number]-[id number] trypsin Performed By: #### AAT #### [place] [address] URINALYSIS ROUTINE Collected: 07/03/2018 Status: F Source: [facility] 12:45 AM HEALTH SYSTEM REPOSITORY TYPE CODE TESTS RESULT OUT OF REFERENCE UNITS RANGE LAB COLOR(LOIN C) Urine Color YELLOW LAB APPUR(LOIN C) Urine Appearance CLEAR LAB GLUUR(LOIN Negative mg/dL C) Glucose Urine NEGATIVE LAB KETON(LOIN Negative mg/dL C) Ketone Urine NEGATIVE LAB HGBUR(LOIN Negative C) Hemoglobin,Urine NEGATIVE LAB PROTU(LOIN Negative mg/dL C) Protein Urine NEGATIVE LAB NITRI(LOIN Negative C) Nitrites Urine NEGATIVE LAB BILIU(LOIN Negative C) Bilirubin Urine NEGATIVE LAB SPG(LOINC) 1.005-1.030 Specific [place], Ur 1.014 LAB PHUR(LOINC 5.0-8.0 ) pH,Urine 7.5 LAB UROBI(LOIN 0.0-1.0 EU/dL C) Urobilinogen,Ur 0.2 LAB LEUKO(LOIN Negative C) Leukocytes NEGATIVE Esterase LAB RBCU1(LOIN 0.0-5.0 /hpf C) RBC,Urine 2.1 LAB WBCU1(LOIN 0.0-5.0 /hpf C) WBC, Urine 0.2 LAB EPIT1(LOIN 0.0-5.0 /hpf C) Ep Cells Urine 0.2 LAB BACT1(LOIN None C) Bacteria Urine NONE LAB HYCA1(LOIN 0.0-1.0 /lpf C) Hyaline Cast 0.0 Performed By: #### URIN2 #### [place] [address] URINE DRUG SCREEN Collected: 07/03/2018 Status: F Source: [facility] 12:45 AM HEALTH SYSTEM REPOSITORY TYPE CODE TESTS RESULT OUT OF REFERENCE UNITS RANGE LAB UAMP(LOINC Non-Detected ) Urine Amphetamine Non-detecte d LAB UBARB(LOIN Non-Detected C) Urine Barbiturates Non-detecte d LAB UBENZ(LOIN Non-Detected C) Urine Benzodiazepine Non-detecte d LAB UCOC(LOINC Non-Detected ) Urine Cocaine Metab Non-detecte d LAB UOPI(LOINC Non-Detected ) Urine Opiate see below Result Comment: Detected (unconfirmed) LAB UPCP(LOINC) Non-Detected Non-detected Urine PCP LAB UTHC2(LOINC) Non-Detected see below Urine THC Result Comment: Detected (unconfirmed) Urine Drug Cutoff Levels Urine Amphetamine 500 ng/mL Urine Barbiturate 200 ng/mL Urine Benzodiazepines 200 ng/mL Urine Cocaine 150 ng/mL Urine Phencyclidine (PCP) 25 ng/mL Urine Opiates 300 ng/mL Urine THC 50 ng/mL The results of these analytes are unconfirmed and reported qualitatively as detected or non-detected relative to the cutoff value. Detected results indicate the sample is likely to contain the analyte. Non-detected results indicate that either the sample does not contain the analyte or it is present in concentrations below the cutoff level. This drug screen should be used for medical diagnostic purposes only. Performed By: #### UDRG2 #### [place] [address] HEP. B SURFACE AG Collected: 07/03/2018 Status: F Source: [facility] [address] [place] [address] SYSTEM REPOSITORY TYPE CODE TESTS RESULT OUT OF REFERENCE UNITS RANGE LAB HBSA(LOINC Negative ) Hep.B Surface Negative Ag Performed By: #### HBSAG #### [place] [address] HEPATITIS C ANTIBODY Collected: 07/03/2018 Status: F Source: [facility] [address] [place] [address] SYSTEM REPOSITORY TYPE CODE TESTS RESULT OUT OF REFERENCE UNITS RANGE LAB HCV(LOINC) Negative Hepatitis C Ab Negative Performed By: #### HCVAB #### [place] [address] HIV SCREEN Collected: 07/03/2018 Status: F Source: [facility] 12:[facility] REPOSITORY TYPE CODE TESTS RESULT OUT OF REFERENCE UNITS RANGE LAB 3HIV(LOINC Nonreactive ) HIV Negative Screen Performed By: #### 3HIV #### [place] [address] HEP. B CORE AB IGM Collected: 07/03/2018 Status: F Source: [facility] 12:[facility] REPOSITORY TYPE CODE TESTS RESULT OUT OF REFERENCE UNITS RANGE LAB HBCO(LOINC) Negative HB Core Negative Ab IgM Performed By: #### HBCOR #### [place] [address] HEPATITIS A AB, IGM Collected: 07/03/2018 Status: F Source: [facility] [address] [place] [address] SYSTEM REPOSITORY TYPE CODE TESTS RESULT OUT OF REFERENCE UNITS RANGE LAB HAVA(LOINC) Negative HAV Ab Negative IgM Performed By: #### HAVAB #### [place] [address] HEP. B SURFACE AB Collected: 07/03/2018 Status: F Source: [facility] 12:45 AM HEALTH SYSTEM REPOSITORY TYPE CODE TESTS RESULT OUT OF REFERENCE UNITS RANGE LAB ANTB(LOINC) mIU/mL Hep. B Surface > 1000.0 Ab Result Comment: Hep B. Antibody < 10.0 mIU/mL is negative. Hep B. Antibody > or = 10.0 mIU/mL is positive. Performed By: #### ANTB #### [place] [address] HEPATITIS A TOTAL Collected: 07/03/2018 Status: F Source: [facility] 12:45 AM HEALTH SYSTEM REPOSITORY TYPE CODE TESTS RESULT OUT OF REFERENCE UNITS RANGE LAB HEPAX(LOIN C) Hepatitis A SEE BELOW Total Result Comment: Hepatitis A Ab Total Positive AB NEGAT Performing Laboratory: [facility] [place] [address] Performed By: #### HEPAX #### [place] [address] SMOOTH MUSCLE AB Collected: 07/03/2018 Status: F Source: [facility] 12:45 AM HEALTH SYSTEM REPOSITORY TYPE CODE TESTS RESULT OUT OF REFERENCE UNITS RANGE LAB SMUSX(LOINC ) Smooth Muscle SEE BELOW Ab Scr Result Comment: Smooth Muscle Ab Pnl Negative NEGAT Normal range : negative at a 1:20 serum dilution. Performing Laboratory: [facility] [place] [address] Performed By: #### SMUSX #### [place] [address] SHANTEL BY IFA SCREEN Collected: 07/03/2018 Status: F Source: [facility] 12:45 AM HEALTH SYSTEM REPOSITORY TYPE CODE TESTS RESULT OUT OF REFERENCE UNITS RANGE LAB ANAX(LOINC) SHANTEL by IFA SEE BELOW Screen Result Comment: SHANTEL Negative NEGAT Normal range : negative at <1:80 serum dilution. Approximately 6% of patients with connective tissue diseases with low positive EIA values are negative by IFA. Recommend follow-up with specific antinuclear antibodies if clinically indicated. SHANTEL Titer Negative NEGAT Normal range : negative at <1:80 serum dilution. SHANTEL Pattern SEE BELOW Not applicable for negative result. Performing Laboratory: [facility] [place] [address] Performed By: #### ANAX #### [facility] [address] [place], [place] [address] HISTORY PHYSICAL Observed: 07/02/2018 Status: COMPLETED Source: [facility] 11:54 PM CLINIC OTHER CAMPUS REPOSITORY HNO ID: [id number] Author: Zina Corado Service: Hospital Medicine Author Type: Physician Type: HANDP Filed: 07/03/2018 5:12 AM Note Text: DEPARTMENT OF HOSPITAL MEDICINE HISTORY AND PHYSICAL EXAM AUTHOR: Zina Corado MD PATIENT NAME: Saturnino Quinonez DATE: July 02, 2018 11:55 PM , : 1985 Primary Care Physician: Garland Kilpatrick MD NIGHT AND WEEKEND COVERAGE: From 7am - 7pm, please call Sound Physician on duty After 7pm, please call cross cover pager #[phone] Subjective CHIEF COMPLAINT: abdominal pain and yellow coloration of urine HPI: This is a 32 year old male with significant PMH of PTSD, family history of a Hereditary spherocytosis, presented with feeling tired and weak unable to eat, nausea, vomiting, abdominal pain and yellow coloration of urine for last 2 days that is gradually worsening and today patient cannot keep anything down and he visited the emergency department for that. Patient feels chills but no fever documented in the ED patient was found to have elevated WBC abnormal ultrasonogram of liver suggestive of hepatitis and elevated bilirubin consistent with hepatitis.The patient was seen and examined at bedside upon arrival to [facility] floor. Appears to be alert and awake with no apparent distress and is able to answer simple questions. Feels much better since coming to hospital. Has no other new active complaints. On direct questioning, denied any ongoing resting chest pain, SOB, orthopnea, cough, fever, ongoing palpitation, active abdominal pain, dysuria, burning During urination any other and GI complaints. PAST MEDICAL HISTORY Diagnosis Date - PTSD (post-traumatic stress disorder) PSH: No surgery Family History: Positive for Hereditary spherocytosis No family history of sudden cardiac , structural malformation, coagulopathy, or any other significant family hisotry that can contribute to the chief complaint/current illness. Social History Substance Use Topics - Smoking status: Current Every Day Smoker Packs/day: 0.50 Years: 6.00 Types: Cigarettes - Smokeless tobacco: Not on file - Alcohol use 18.0 oz/week 12 Cans of Beer (12oz) per week HOME MEDICATIONS: No prescriptions prior to admission. MEDICATIONS: Current hospital medications: aluminum-magnesium hydroxide-simethicone 200-200-20 mg/5 mL 30 mL (MAALOX,MYLANTA,MAG-AL PLUS) 30 mL ORAL DAILY PRN docusate sodium 100 mg cap(s) (COLACE) 100 mg ORAL BID PRN [START ON 07/03/2018] heparin 5,000 Units injection 5,000 Units SUBCUTANEOUS q 8 H HYDROmorphone HCl 0.2 mg injection (DILAUDID) 0.2 mg INTRAVENOUS q 4 H PRN [START ON 07/03/2018] levoFLOXacin iv piggyback 750 mg in D5W 150 mL (LEVAQUIN) 750 mg INTRAVENOUS DAILY magnesium hydroxide 400 mg/5 mL 30 mL (MOM) 30 mL ORAL DAILY PRN NaCl 0.9% iv infusion 75 mL/hr INTRAVENOUS CONTINUOUS ondansetron (PF) 4 mg injection (ZOFRAN) 4 mg INTRAVENOUS q 6 H PRN ondansetron 4 mg tab(s) (ZOFRAN) 4 mg ORAL q 6 H PRN polyethylene glycol 3350 17 g packet (MIRALAX, GLYCOLAX) 17 g ORAL DAILY PRN ALLERGIES No Known Allergies ROS PAIN ASSESSMENT: 0 GENERAL: negative for any fever, night sweats, anorexia or any deformity or diaphoresis HEENT: No eye discahrge, photophobia, hoarseness of voice, discharge from ear, sinus drainage NECK: Negative for lumps, goiter, and significant neck swelling or neck rigidity RESPIRATORY: Negative for hemoptysis, purulent sputum, ongoing resting shortness of breath, tb contacts or exposure CARDIOVASCULAR: Negative for ongoing resting chest pain, or ongoing palpitations. GI: Negative for Dysphagia, hematemesis, melena, rectal bleeding. Positive for pain and nausea : Negative for hematuria, retention, incontinence, STD history, or genital mass or ulcer MUSCULOSKELETAL: Negative for joint swelling, erythema, hematoma or fractures., deformity or muscular atrophy. SKIN: Negative for ulcers, bleeding, erythema or tumors, de/pigmentation. HEMATOLOGY: Negative for prolonged bleeding, or swollen nodes ENDOCRINE: Negative for cold or heat intolerance, ongoing polyuria or polydipsia and goiter NEURO: No paralysis, seizures or tremors or loss of consciousness, seizures, acute loss of vision, persistent diplopia, new onset parasthesias paralysis, weakness in any limbs. PSYCH: Negative for hallucination, or suicidal ideation Pertinent positives and negatives are noted in the HPI, all other systems are reviewed and negative. Objective Physical Exam BP 113/58 Pulse 72 Temp (Src) 99.7 (Oral) Resp 18 Ht 6' 3.984 (1.93m) Wt 170 lb 6.7 oz (77.3kg) SpO2 100% BMI 20.75 kg/(m2). General: No acute distress and Alert AND Awake HEENT: NC/AT, PERRLA, no icterus. OP clear and no exudates Neck: Supple, There is no LAD or thyromegaly. Cardio: S1+S2 WNL; No S3 or S4; no MGRs Pulmonary: Lungs clear to auscultation bilaterally, no audible wheezing Abdomen: Soft, mild tender LUQ,non-distended, Bowel sounds audible, No palpable masses Extremities: All peripheral pulses are palpable. No calf tenderness. Asterixis and tremor is absent. Musculoskeletal: No joint swelling, deformity, or tenderness Neuro exam: Alert and awake. No new focal neuro deficit. Sensation grossly normal Derm: Negative for rashes and lesions. Pressure ulcer/decibiti: None Admission Lab/Imaging/Procedure workup: Most recent labs and imaging results. Results for orders placed or performed during the hospital encounter of 07/02/18 XR CHEST 1V FRONTAL Result Value Ref Range Cushion Sewer CHEST RADIOGRAPH: AP view of the chest. Exam Date/Time: 07/02/2018 11:45 PM Indication: Chest pain or SOB, pleurisy or effusion suspected Comparison: No relevant prior study available for comparison. RESULTS: Lines, Tubes, and Devices: None Lungs and Pleura: The lungs are clear. No pleural effusion or pneumothorax. Cardiomediastinal silhouette: The mediastinal and cardiac silhouette are normal in size and contour. Other: The bones of the chest are unremarkable. IMPRESSION: No radiographic evidence of acute cardiopulmonary abnormality. Active Hospital Problems Diagnosis - Hepatitis - Jaundice - Abdominal pain - Dehydration - Lactic acid acidosis Anticoagulant AND Antiplatelet Medications Start Dose Route Frequency Ordered Stop 07/03/18 0600 heparin 5,000 Units injection (Medical At Risk ) 5,000 Units SUBCUTANEOUS EVERY 8 HOURS 07/02/18 4107 -- ASSESSMENT AND PLAN # Acute abdominal pain with Jaundice - due to Hepatitis vs Gastroenteritis Currently alert and awake, hemodynamically stable. BUN/Cr = WNL Lipase= WNL Utox = negative Hepatitis panel and HIV ordered US abdomen = Possible hepatitis [paper report on chart] IV fluid + Protonix + Zofran + Pain medication IV Levofloxacin pending culture resports GI consult, if indicated in AM Close monitoring of vitals # Family H/o Hereditary Spherocytosis Awaiting blood film results # H/O PTSD- Stable # VTE Prophylaxis: Lovenox 40mg Sub Q Daily # NUTRITION: Eating and drinking diet # IVF's: NS @ 60 ml/hour # Fall Precaution: Yes # Disposition: Home # Code Status: Full Code The Patient was counseled at bedside about clinical status, laboratory/imaging results, diagnoses, and treatment plan and verbalized understanding. Additionally the risks, consequences, alternatives and side effects of the prescribed medications were explained and verbalized understanding and agreed. Total Time Spent on Patient Admission 45 minutes SIGNATURE: Zina Corado MD PATIENT NAME: Saturnino Quinonez DATE: July 02, 2018 TIME: 11:55 PM PAGER/CONTACT #: [id number] PROTIME Collected: 07/02/2018 Status: F Source: [facility] 11:46 PM HEALTH SYSTEM REPOSITORY TYPE CODE TESTS RESULT OUT OF REFERENCE UNITS RANGE LAB PTI(LOINC) 9.7-13.0 sec Prothrombin Time 11.0 LAB INR(LOINC) 0.90-1.30 INR 1.06 Result Comment: Note: Reference Range Change Vitamin K Antagonist (VKA) Therapeutic Range: INR 2 to 3 (Target INR of 2.5) Note: For patients treated with VKA drugs, such as warfarin, the [place] [employer] 2012 Guideline recommends a therapeutic INR range of 2 to 3 (target INR of 2.5). This recommendation includes high-risk patients with antiphospholipid syndrome with previous arterial or venous thromboembolism, current-generation mechanical or bioprosthetic aortic heart valve replacement. VKA Therapeutic Range for some Mechanical Valve Replacement: INR 2.5 to 3.5 (Target INR of 3) Note: Patients with mechanical aortic valve replacement and additional risk factors for thromboembolic events (atrial fibrillation, previous thromboembolism, LV dysfunction, hypercoagulable conditions) or an older generation mechanical AVR (i.e., ball in-Cage) or any mechanical MVR should have a INR therapeutic range of 2.5 to 3.5 target INR of 3). Sonia LAM, et al. Chest 2012; 141:7S-47S Gena RA, et al. JACC 2017; 70: 252-289 Performed By: #### PT #### [facility] [address] [place] [address] ACTIVATED PTT Collected: 07/02/2018 Status: F Source: [address] [facility] REPOSITORY TYPE CODE TESTS RESULT OUT OF REFERENCE UNITS RANGE LAB APTT(LOINC 23.0-32.4 sec ) Activated PTT 27.4 Result Comment: Note: New Reference Range Unfractionated Heparin Therapeutic Ranges: Standard Heparin Nomogram: 53 to 78 seconds (anti-Xa level of 0.3 to 0.7 U/mL) Low Dose/ACS Nomogram: 49 to 67 seconds (anti-Xa level of 0.2 to 0.5 U/mL) Stroke Treatment Nomogram: 49 to 67 seconds (anti-Xa level of 0.2 to 0.5 U/mL) Note: The APTT therapeutic range has been determined for the current lot of laboratory APTT reagent in use throughout the [facility]. Performed By: #### APTT #### [place] [address] LACTIC ACID Collected: 07/02/2018 Status: F Source: [address] SYSTEM REPOSITORY TYPE CODE TESTS RESULT OUT OF REFERENCE UNITS RANGE LAB LAC(LOINC) 0.4-2.0 mEq/L Lactic Acid 1.3 Performed By: #### LAC #### [place] [address] COMPREHENSIVE PANEL Collected: 07/02/2018 Status: F Source: [address] SYSTEM REPOSITORY TYPE CODE TESTS RESULT OUT OF REFERENCE UNITS RANGE LAB NA(LOINC) 136-145 mEq/L Sodium Blood 140 LAB K(LOINC) 3.5-5.1 mEq/L Potassium Blood 3.5 LAB CL(LOINC) 98-107 mEq/L Chloride High Blood 108 LAB CO2(LOINC) 21-32 mEq/L CO2 Blood 26 LAB GLU(LOINC) 70-99 mg/dL Glucose Blood 93 LAB BUN(LOINC) 7-18 mg/dL Low BUN Blood 6 LAB CREA(LOINC 0.67-1.17 mg/dL ) Low Creatinine Blood 0.63 LAB CA(LOINC) 8.5-10.1 mg/dL Low Calcium Blood 7.6 LAB ALB(LOINC) 3.4-5.0 g/dL Low Albumin Blood 3.2 LAB AST(LOINC) 9-37 U/L AST-SGOT Blood 23 LAB ALT(LOINC) 12-78 U/L ALT-SGPT Blood 32 LAB ALKP(LOINC 46-116 U/L ) Alk Phosphatase 60 LAB BILIT(LOIN 0.2-1.0 mg/dL C) Total High Bilirubin 1.4 LAB ANGAP(LOIN 8-16 C) Anion Gap 10 LAB TP(LOINC) 6.4-8.2 g/dL Low Total Protein 5.9 Performed By: #### P14 #### [place] [address] MAGNESIUM BLOOD Collected: 07/02/2018 Status: F Source: [facility] 11:46 PM HEALTH SYSTEM REPOSITORY TYPE CODE TESTS RESULT OUT OF REFERENCE UNITS RANGE LAB MAG(LOINC) 1.6-2.6 mg/dL Magnesium Blood 1.9 Performed By: #### MAG #### [place] [address] PHOSPHORUS BLOOD Collected: 07/02/2018 Status: F Source: [facility] 11:46 PM HEALTH SYSTEM REPOSITORY TYPE CODE TESTS RESULT OUT OF REFERENCE UNITS RANGE LAB PHOS(LOINC 2.5-4.9 mg/dL ) Phosphorus Blood 2.6 Performed By: #### PHOS #### [place] [address] Observed: 07/02/2018 Status: F Source: [facility] CULT BLOOD 11:46 PM HEALTH SYSTEM REPOSITORY Test performed at [facility] No growth Performed By: #### C_BLO #### [place] [address] CHEST 1 VIEW Observed: 07/02/2018 Status: F Source: [facility] 11:45 PM HEALTH SYSTEM REPOSITORY Performed at [facility] APPROVED BY: HANH OG MD CHEST RADIOGRAPH: AP view of the chest. Exam Date/Time: 07/02/2018 11:45 PM Indication: Chest pain or SOB, pleurisy or effusion suspected Comparison: No relevant prior study available for comparison. RESULTS: Lines, Tubes, and Devices: None Lungs and Pleura: The lungs are clear. No pleural effusion or pneumothorax. Cardiomediastinal silhouette: The mediastinal and cardiac silhouette are normal in size and contour. Other: The bones of the chest are unremarkable. IMPRESSION: No radiographic evidence of acute cardiopulmonary abnormality. LIPASE BLOOD Collected: 07/02/2018 Status: F Source: [facility] 11:45 PM HEALTH SYSTEM REPOSITORY TYPE CODE TESTS RESULT OUT OF REFERENCE UNITS RANGE LAB LIP(LOINC) 73-393 U/L Lipase Blood 127 Performed By: #### LIP #### [facility] [address] [place] [address] HEMOGRAM Collected: 07/02/2018 Status: F Source: [facility] 11:40 PM HEALTH SYSTEM REPOSITORY TYPE CODE TESTS RESULT OUT OF REFERENCE UNITS RANGE LAB WBC(LOINC) 4.23-9.07 thou/cmm High WBC 13.41 LAB RBC(LOINC) 4.63-6.08 mil/cmm Low RBC 3.89 LAB HGB(LOINC) 13.7-17.5 g/dL Low Hgb 12.9 LAB HCT(LOINC) 40.1-51.0 % Low Hct 37.8 LAB MCV(LOINC) 83.2-95.6 fl High MCV 97.2 LAB MCH(LOINC) 25.7-32.2 pg High MCH 33.2 LAB MCHC(LOINC) 32.3-36.5 % MCHC 34.1 LAB RDW(LOINC) 11.6-14.4 % Low RDW 11.5 LAB RDWSD(LOINC 36.1-45.8 fl ) RDW SD 40.7 LAB PLT(LOINC) 141-365 thou/cmm Platelet 345 LAB MPV(LOINC) 8.7-12.0 fl MPV 9.9 Performed By: #### CBC1 #### [place] [address] Observed: 07/02/2018 Status: F Source: [facility] CULT URINE 11:00 PM HEALTH SYSTEM REPOSITORY Test performed at [facility] No growth Performed By: #### C_URI #### [address] [address] Observed: 07/02/2018 Status: F Source: [facility] BLOOD 11:00 PM HEALTH SYSTEM REPOSITORY Test performed at [facility] No growth Performed By: #### C_BLO #### [facility] [address] [place], [place] [address] EMERGENCY DEPARTMENT Observed: 07/02/2018 Status: F Source: [place] SUMMARY 8:24 PM [facility] Medical Records Department [address] [facility] [place] [address] Emergency Department Summary 07/02/182020 MR#: [id number] Acct: [id number] Name: SATURNINO QUINONEZ Rep #: [id number] : 1985 32 From: Sangita Min DO PCP: [facility] Status: REG ER - ER Visit Summary Date of Service: 07/02/18 Chief Complaint: [Abdominal pain] History of Present Illness: The patient is a 32 M [presents with abdominal pain that started around 8 or 9 AM this morning. Patient states it gradually worsened and became severe. Patient rates his pain as an 8 out of 10 currently. Patient states that he vomited 5-6 times. Patient denies any diarrhea. Denies any fever. Patient is never had pain like this before. Patient has no medical history. Patient denies any urinary symptoms. He denies any blood in his stool or black tarry stools.] Physical Examination: [HEENT-PERRLA, EOMI. Cranial nerves II through XII grossly intact. TMs clear. Mucous membranes moist. No adenopathy. Cardiovascular-regular rate and rhythm without murmur or ectopy Lungs-clear to auscultation, chest wall stable without crepitus or subcu emphysema Abdomen-normoactive bowel sounds, soft. Patient has diffuse tenderness palpation with some guarding. No rebound, rigidity, or perineal signs. Extremities-intact 4, normal range of motion, normal pulses, atraumatic] Test Results: [CBC with differential obtained showed a white count 12.4, hemoglobin 15, hematocrit 44, platelets 357. Chemistries unremarkable. LFTs were unremarkable other than a slightly elevated total bilirubin of 1.8. Lipase was 101. Lactate was elevated 2.2. CT scan of the abdomen pelvis showed enlarged and edematous liver suspicious for hepatitis. Ultrasound of the gallbladder was obtained after discussing case with hospitalist which showed a normal gallbladder and only trace pericholecystic fluid which may be reactive.] Emergency Department Course and Treatment: [Patient was medicated with Dilaudid and Zofran multiple times. Patient continues to complain of significant pain. Initially I discussed case with hospitalist to admit patient here who asked that I discussed case with general surgeon on-call. I spoke with Dr. Prieto who asked that we transfer patient to tertiary care center. Patient would like to go to [facility]. I discussed case with [facility] who accepted transfer of patient.] Treatment Plan: [Transfer to [facility]] Disposition: [Transfer] Impression: [Abdominal pain-etiology uncertain Intractable abdominal pain Abnormal appearance of liver on CT scan] This note was generated with StoreDot dictation software. It may contain incorrect words, spelling, and punctuation that were not noted in review of the chart prior to signing ED Disposition - Plan for ED Patient: Chief Complaint: Abd Pain Referrals: [facility] [Primary Care Provider] - What to do if you have Problems For any increased pain, shortness of breath, bleeding, nausea or vomiting, chest pain, or any unexpected problems, contact your Primary Care Provider. Call [facility] ([phone]) or report to the closest Emergency Room. Call 911 if necessary. 07/02/182023 <Electronically signed by Sangita Min DO> Date Sangita Min DO Cosigner Signature (If Indicated): Date CC: [facility] LACTIC ACID Collected: 07/02/2018 Status: F Source: [place] 8:23 PM [facility] TYPE CODE TESTS RESULT OUT OF RANGE REFERENCE UNITS LAB L503.6005 0.4-2.0 mmol/L Normal LACTIC ACID 1.8 Performed By: #### L503.6005 #### [facility] [address] [place], [address] URINALYSIS, COMPLETE Collected: 07/02/2018 Status: F Source: [place] 7:28 PM [facility] Order Comment: Order Date: 07/02/18 How was Urine Obtained? CLEAN CATCH TYPE CODE TESTS RESULT OUT OF RANGE REFERENCE UNITS LAB L400.3000 Yellow COLOR Normal Yellow LAB L400.3050 Clear Normal CLARITY Clear LAB L400.3200 Normal mg/dl Normal GLUCOSE, UR Normal LAB L400.3300 Negative mg/dL Normal BILIRUBIN URINE Negative LAB L400.3400 Negative mg/dl High 5 KETONE UR LAB L400.3465 1.002-1.030 Normal SP.GR. DIPSTX 1.005 LAB L400.3550 5.0 - 8.0 pH UR Normal 7.0 LAB L400.3600 Negative mg/dl High PROT 15 DIPSTX LAB L400.3700 Normal mg/dl High 1 UROBILI LAB L400.3750 Negative Normal NITRITE UR Negative LAB L400.3780 Negative /ul Normal OCCULT BLOOD-UR Negative LAB L400.3800 Negative /ul High LEUK 25 ESTERASE LAB L400.4050 0-5 /hpf WBC Normal 0-5 SEEN LAB L400.4100 0-5 /hpf 0 Normal RBC-UA SEEN LAB L400.4150 0-5 /hpf SQUAM Normal EPI 0-5 SEEN LAB L400.4300 None Seen /hpf 0 Normal BACTERIA SEEN LAB L400.4350 <or=2+ /hpf 0 Normal MUCUS, URINE SEEN Performed By: #### L400.0001 #### [facility] [address] [place], [address] GALLBLADDER Observed: 07/02/2018 Status: F Source: [place] 6:12 PM [facility] Imaging Services [address] [place] [address] Gallbladder MR#: [id number] Acct: [id number] Name: SATURNINO QUINONEZ Rep #: [id number] : 1985 M 32 From: Radha Aparicio MD [facility] Status: REG ER Study: Gallbladder Date of Exam: 07/02/18 Exam# [id number] Ordering Dr: Sangita Min DO STUDY: ABDOMINAL ULTRASOUND - RIGHT UPPER QUADRANT REASON FOR VISIT: Male, 32 years old. Upper abdominal pain. TECHNIQUE: Ultrasound evaluation of the right upper quadrant was performed with real-time and static betancourt-scale imaging. TECHNICAL QUALITY: Adequate. COMPARISON: None. FINDINGS: Liver: The liver measures 20.1 cm. There is normal echogenicity of the liver. The bile ducts are within normal limits. There is hepatic color flow. The direction of portal flow is hepatopetal. There is no demonstrated mass lesion. Gallbladder: Normal distended gallbladder. The gallbladder wall measures 2.0 mm. There is a negative sonographic Moore's sign. There is trace pericholecystic fluid. There are no gallstones. Common Bile Duct (C.B.D.): The common bile duct measures 3.2 mm. Pancreas: Normal size of the head, body and tail of the pancreas. There is normal echogenicity of the pancreas. There is no demonstrated pancreatic mass or cyst. Right Kidney: Normal size of the right kidney. The right kidney measures 12.7 cm in length. Normal renal cortex.There is no demonstrated renal mass or cyst. There is no right hydronephrosis. US/Gallbladder IMPRESSION: Trace pericholecystic fluid, this may be reactive. Electronically Signed: Radha Aparicio MD at 19:13 EST Tel , Service support , CC: [facility]; Sangita Min DO Rn Care Transition: Signed CBC W/DIFF, AUTOMATED Collected: 07/02/2018 Status: F Source: [place] 3:35 PM [facility] TYPE CODE TESTS RESULT OUT OF RANGE REFERENCE UNITS LAB L100.1000 4.4-11.0 K/mm3 High WBC 12.4 LAB L100.1200 4.6-6.2 M/mm3 Low RBC 4.57 LAB L100.1300 13.0-16.5 g/dl Normal HGB 15.2 LAB L100.1400 40-54 % Normal HCT 44.3 LAB L100.1500 80-94 fL High MCV 96.9 LAB L100.1600 27.0-32.0 pg High MCH 33.3 LAB L100.1700 32-36 g/gl Normal MCHC 34.3 LAB L100.1810 11.6-14.6 % Normal RDW CV 11.8 LAB L100.1820 35.1-43.9 fl Normal RDW SD 41.6 LAB L100.1900 150-450 K/mm3 Normal PLT 357 LAB L100.2000 6.2-12.0 fl Normal MPV 9.5 LAB L100.2100 47-70 % High NEUT% 87.2 LAB L100.2200 19-41 % Low LY% 7.8 LAB L100.2300 0-10 % Normal MONO% 4.4 LAB L100.2400 0-5 % Normal EO% 0.2 LAB L100.2500 0-1 % Normal BASO% 0.2 LAB L100.2550 0.0-0.9 % Normal IM GRAN % 0.200 Result Comment: IG% - Immature Granulocytes (promyelocytes, myelocytes and metamyelocytes) > 1% indicates that a LEFT SHIFT is Present. LAB L100.2620 2.0-7.7 X10 3/uL High Absolute Neut 10.8 LAB L100.2720 0.83-4.51 X10 3/ul Normal Absolute Lymph 0.96 Performed By: #### L100.0100 #### [facility] [address] [place], [place] [address] [place], [place], [address] COMPREHENSIVE METABOLIC Collected: 07/02/2018 Status: F Source: [facility] 3:35 PM [facility] TYPE CODE TESTS RESULT OUT OF RANGE REFERENCE UNITS LAB L501.0100 74-106 mg/dL High GLU 136 Result Comment: Fasting Glucose result greater than or equal to 126 mg/dL suggests DIABETES MELLITUS per A.D.A. criteria. Please note revised GLUCOSE reference range effective 2017. LAB L501.1000 7-18 mg/dL Normal BUN 9 LAB L501.1100 0.70-1.30 mg/dL Normal CREAT,SERUM 0.73 Result Comment: The validity of the calculated GFR AND GFRAA in patients over 70 years has not been determined. Clinical correlation is essential. LAB L501.1110 >60 mL/min Normal EST GFR 131 Result Comment: Non- GFR Calc LAB L501.1115 >60 mL/min Normal EST GFR - AA 158 Result Comment: GFR Calc LAB L501.1255 ml/min Normal Estimated CRCL 146.37 LAB L501.1300 10-20 RATIO BUN/CRE Normal 12.4 LAB L501.1500 6.4-8. g/dL 2 T PROT Normal 7.9 LAB L501.1800 3.2-5. g/dL 0 ALB Normal 4.5 LAB L501.1950 2.2-4. g/dL 2 GLOB Normal 3.4 LAB L501.2000 0.9-2. RATIO 4 A/G Normal 1.3 LAB L501.2200 8.5-10 mg/dL .1 CA Normal 9.4 LAB L501.4100 15-37 U/L AST Normal 22 LAB L501.4305 45-117 U/L ALK P Normal 88 LAB L501.4405 16-61 U/L ALT Normal 41 LAB L501.4600 0.20-1 mg/dL High .00 T BILI 1.80 LAB L501.5300 136-14 mmol/L 5 NA Normal 142 LAB L501.5600 3.5-5. mmol/L 1 K Normal 4.2 LAB L501.5900 98-107 mmol/L CL Normal 107 LAB L501.6100 21.0-3 mmol/L 2.0 CO2 Normal 28.0 LAB L501.6200 5-15 GAP Normal 7 Performed By: #### L500.4050, L501.2450 #### [facility] [address] [facility] [place], [place], [id number] LIPASE Collected: 07/02/2018 Status: F Source: [place] 3:35 PM [facility] TYPE CODE TESTS RESULT OUT OF RANGE REFERENCE UNITS LAB L501.2450 73-393 U/L Normal LIPASE 101 Performed By: #### L500.4050, L501.2450 #### [facility] [address] [facility] [place], [place], [id number] LACTIC ACID Collected: 07/02/2018 Status: F Source: [place] 3:35 PM [facility] Order Comment: Yes/No query for Sepsis Lactate Rule Y TYPE CODE TESTS RESULT OUT OF REFERENCE UNITS RANGE LAB L503.6005 0.4-2.0 mmol/L High LACTIC ACID 2.2 Result Comment: Critical Result(s) Called at: 16:19:17 07/02/2018 by: Ricco Trent RN Performed By: #### L503.6005 #### [facility] [address] [facility] [place], [place], [address] ABDOMEN/PELVIS WITH Observed: 07/02/2018 Status: F Source: [place] CONTRAST 3:17 PM [facility] Imaging Services [address] [facility] [place] [address] Abdomen/Pelvis WITH Contrast MR#: [id number] Acct: [id number] Name: SATURNINO QUINONEZ Rep #: [id number] : 1985 M 32 From: Celso Herring MD PCP: [facility] [place] Status: REG ER Study: Abdomen/Pelvis WITH Contrast Date of Exam: 07/02/18 Exam# [id number] Ordering Dr: Sangita Min DO STUDY: CT ABDOMEN AND PELVIS WITH CONTRAST REASON FOR EXAM: Male, 32 years old. Abdominal pain. RADIATION DOSAGE (If Supplied By Facility): CTDIvol = ( ) mGy, DLP = ( ) mGycm TECHNIQUE: Transaxial images were obtained from the dome of the diaphragm to the symphysis pubis with oral contrast. 100 ml of Isovue 300 contrast was administered. Sagittal and coronal images were reconstructed. Individualized dose optimization techniques were used for this CT. COMPARISON: None. FINDINGS: The visualized lung bases are unremarkable. The visualized portions of the heart are within normal limits. Abnormal appearance of the liver which is heterogeneous and enlarged, and there is edema surrounding the hepatic radicles. This appearance is nonspecific but suggests hepatitis. Normal gallbladder and extrahepatic biliary system. Normal spleen. Normal pancreas. Normal bilateral adrenal glands. Normal right kidney. Normal left kidney. Evaluation of the GI tract is limited because although oral contrast was given, apparently the patient was not scanned with any delay in contrast is seen only in the stomach and duodenum. There are no dilated loops of bowel or evidence for obstruction but cannot exclude segments of bowel wall thickening. Appendix suboptimally seen but grossly negative. Normal abdominal aorta. Normal inferior vena cava. Normal retroperitoneum. Normal urinary bladder. There is enlargement of the prostate gland. Trace free fluid. Normal abdominal wall. Normal osseous structures. CT/Abdomen/Pelvis WITH Contrast IMPRESSION: Enlarged and probably edematous liver suspicious for hepatitis. Electronically Signed: Celso Herring MD at 17:47 EST , Service support , CC: [facility]; Sangita Min DO Rn Care Transition: Signed ALLERGIES ALLERGIES DATE TYPE / CODE NAME / CODE REACTION SEVERITY SOURCE 08/11/2018 Drug No Known Unknown [facility] Allergy/416 Allergies/L95784 Hospital 987367(SNOM 0388(RXNORM) Repository ED CT) Drug NO KNOWN [facility] Class/10961 ALLERGIES Other [place] 1003(SNOMED Repository CT) NG/[id number] NO KNOWN [facility] 6(SNOMED ALLERGIES Health [facility] CT) Repository ENCOUNTERS ENCOUNTERS ADMIT/DISCHARGE ACCOUNT NUMBER ADMITTING ENCOUNTER LOCATION SOURCE CLASS 08/11/2018 [id number] Ambulatory BMSBuilding: [place] BMS.CF.[facility] Repository 08/11/2018 [id number] Ambulatory [facility] ding:OMD Repository 08/03/2018 [id number] Ambulatory BMSBuilding: [place] BMS.CF.[facility] Repository 07/02/2018/07/03/20 [id number] [facility], Ambulatory [address] Other [place] Repository 07/02/2018/07/03/20 [id number] [facility], Inpatient [place] [facility] [address] [place] [address] MEDICAL Repository CENTERBuildi nRoom: 5423Bed: 07/02/2018/07/02/20 [id number] Emergency [place] [address] [facility] ding:ED Repository PAYERS PAYERS ENCOUNTER GUARANTOR PAYER SUBSCRIBER SOURCE 08/11/2018 SATURNINO Bertrand Primary Insurance:[place] SATURNINO QUINONEZ[address] [place], [place] [address]B: [facility] [employer]ILL[employer]LE Number: [id number] [id number] Repository [address]Lgr: (330) Date:3501-16-65DVV [phone] () SERVICE [id number] [place], [place] [address]KD: [phone] 08/11/2018 Secondary SATURNINO Craft Insurance:CARESOURCEP HUFFORDDOB: [facility] olic Number: [id number] Hospital [id number] Repository Date:2018-07-20 [address]ATTN: [place] [address]SB: 08/11/2018 Tertiary NOT GIVENUNK [place] Insurance:SELF PAY [facility] Number: Effective Repository Date:2018-08-11 08/11/2018 SATURNINO Bertrand Primary Insurance:[place] SATURNINO QUINONEZ202 [facility] ERB: [facility] Number: [id number], [place] [id number] Repository [address]Qud: ([phone]) Date:4890-14-09FNB [phone] () SERVICE [id number] [place], [place] [address]IW: [phone] 08/11/2018 Secondary SATURNINO Craft Insurance:CARESOURCEP HUFFORDDOB: [facility] Number: [id number] Hospital [id number] Repository Date:2018-07-20 [address]ATTN: [place] [address]LI: 08/11/2018 Tertiary NOT GIVENUNK Lu[place] Insurance:SELF PAY [facility] Number: Effective Repository Date:2018-07-20 08/03/2018 SATURNINO Bertrand Primary SATURNINO Craft [id number] Insurance:CARESOURCEP HUFFORDDOB: Community BILLARD STAPJOANNA olicy Number: [id number] [place], [place] [id number] Repository [address]Hnf: ([phone]) Date:2018-07-20 O [phone] () [address]ATTN: [place] [address]SX: 08/03/2018 Secondary NOT GIVENUNK Luana Insurance:SELF PAY [facility] Number: Effective Repository Date:2018-08-03 07/02/2018 SATURNINO Bertrand Primary Insurance:[place] SATURNINO [facility] HUFFORDDOB: [facility] Systems[facility]DOB: [facility] Number: [id number] Repository ANGIE TERRELL [id number], [place] Date: [id number]: () 07/02/2018 Secondary SATURNINO Hsu General Insurance:CARESOURCE HUFFORDDOB: [facility] MEDICAIDPolicy [id number] Repository Number: [id number] Date: 07/02/2018 SATURNINO Bertrand Primary Insurance:[place] SATURNINO Craft [id number] Center[facility]UK HealthcareFFORDDOB: Community BILLARD STAPJOANNA Number: [id number] [id number] Repository [address]Kcx: [phone]) Date:[id number] [phone] () [facility] [id number] [place], [place] [address]PB: [phone] 07/02/2018 Secondary SATURNINO Craft Insurance:CARESOURCEP HUFFORDDOB: [facility] Number: [id number] [id number] Repository Date:2018-07-02P [address]ATTN: [place] [address]GE: 07/02/2018 Tertiary NOT GIVENUNK Adah Insurance:SELF PAY [facility] Number: Effective Repository Date:2018-07-02
== END 2018-07-02 21:00 | disposition short-term general hospital (02) ==
LOC: ED 15:33
PROVIDERS: Emergency Provider Emergency Medicine
DX: R10.9 Unspecified abdominal pain (principal); R93.2 Abnormal findings on diagnostic imaging of liver and biliary tract; R11.10 Vomiting, unspecified; Z72.0 Tobacco use
CPT/HCPCS: 74177; 76705; 80053; 81001; 83605; 83690; 85025; 96361; 96374; 96375; 96376; 99284; J7030; Q9967; A4216; J2405

== ENCOUNTER 2023-12-14 21:56 | Emergency (ER) | payer MEDICAID, SELFPAY ==
[2023-12-14 21:57] VITALS: BP 114/71; PULSE 80; RESP 15; TEMP 36.7; O2SAT 99; BMI 18.2
--- NOTE | 2023-12-14 22:26 | CT_ITS ---
INDICATION: injury right side EXAMINATION: CT Chest W/O Contrast Injection TECHNIQUE: Helically acquired images were obtained of the chest without IV contrast. A radiation dose optimization technique was used for this scan. COMPARISON: None. FINDINGS: Lungs: Unremarkable Mediastinum: The cardiomediastinal silhouette is not enlarged. No mediastinal, hilar or axillary adenopathy. The thoracic aorta is unremarkable. Pleura: Unremarkable Bones/Soft tissues: No suspicious osseous or soft tissue lesions Upper abdomen: No visualized abnormalities in the upper abdomen. CT/Chest without Contrast IMPRESSION: No acute abnormalities in the chest. Electronically Signed: Zaki Boland MD at 23:17 EDT ,
[2023-12-14 23:51] VITALS: BP 97/67; PULSE 59; RESP 16; TEMP 36.8; O2SAT 100
--- NOTE | 2023-12-26 18:05 | EDS_ITS ---
HPI HPI - Fall History of Present Illness Chief Complaint: Fall Informant: patient and spouse/S.O. Narrative Narrative: Late note: Patient seen 12/14/2023 presents fall down some steps 2 days prior. No head injuries. Pain to his right ribs and dyspnea. Abrasion to right hip. Denies anticoagulation denies loss conscious. No other injuries. [facility] Medical History Post traumatic stress disorder (PTSD) Hearing problem Home Medications ?Medication ?Instructions ?Recorded ?Last Taken ?Type NK 12/14/23 Unknown History Allergy/AdvReac Type Severity Reaction Status Date / Time No Known Allergies Allergy Verified 12/14/23 22:00 Family History Uncle Hereditary spherocytosis Brother Anxiety PTSD (post-traumatic stress disorder) Surgical History [place] teeth extracted Social History Smoking Status: Current every day smoker tobacco type: cigarettes ROS ROS ED Constitutional Constitutional ED: Denies chills, fever(s) or sweats Eyes Eyes: Denies change in vision ENT ENT ED: Denies dysphagia or sore throat Cardiovascular Cardiovascular: Denies chest pain, leg edema, palpitations or racing heartbeat Respiratory/Chest Respiratory/Chest: Reports dyspnea and other Details: Rib pain ; Denies cough or dyspnea on exertion Gastrointestinal Gastrointestinal: Denies abdominal pain, diarrhea, nausea or vomiting Genitourinary Genitourinary ED: Denies dysuria, hematuria or urinary frequency Musculoskeletal Musculoskeletal: Denies back pain, extremity pain or neck pain Integumentary Reports Abrasions; Denies rash or wounds Neurologic Neurologic: Denies headache(s), paresthesias or weakness EXAM Physical Exam Const Positive well nourished and well developed Constitutional Narrative: GCS 15 General Appearance ED: well developed HEENT Reports moist mucous membranes normocephalic and atraumatic Eyes EOMs intact bilaterally and conjunctivae normal General Eye ED: Yes normal appearance of both eyes Neck no lymphadenopathy and supple General: Negative for tenderness Chest Wall Chest Narrative: Tender palpation right anterior ribs there is no crepitus. No ecchymosis Chest: tenderness Resp normal respiratory effort and normal air movement Resp Narrative: Symmetric breath sounds. Effort and Inspection: symmetric chest movement; Negative for respiratory distress Cardio regular rate, regular rhythm and no murmurs Peripheral Pulses: pulses 2+ throughout GI normal to inspection, nondistended, normoactive bowel sounds and non-tender Palpation: Negative for guarding or rebound tenderness present Back/Spine no CVA tenderness and no thoracic nor lumbar tenderness Extremity normal to inspection Extremity Narrative: Negative logroll bilateral extremities. Abrasion noted right hip. General Extremety ED: Negative for edema or tenderness General Extremity: Negative for edema Neuro oriented x3 and no sensory deficits noted Sensorium / Orientation: awake and alert Skin no rashes or lesions noted and no wounds MDM MDM MDM Narrative Medical decision making narrative: Interventions / MDM: Differential diagnosis: Chest wall contusion Diagnosis considered but do not suspect: Fracture, pneumothorax however CT imaging negative. My EKG interpretation: N/A Imaging independently reviewed and interpreted by myself: Noncontrast CT chest: No fractures noted no pneumothorax. External documents reviewed: N/A Test considered but not ordered:N/A ED course: Patient declined any medications. With mechanism of fall and injury. CT chest ordered for further evaluation. Results of CT negative for fractures or pneumothorax. Instructed take deep breaths, Tylenol or Motrin as needed. Outpatient follow-up with his doctors. All questions were answered. Re-evaluation: stable Disposition discussed with patient/family/significant other: Patient and significant other Case discussed with consulting clinician: N/A This note was generated with [employer] dictation software. It may contain incorrect words, spelling, and punctuation that were not noted in checking the note before signing. Radiography Diagnostic Testing: Clinical Impression(s) from Imaging Studies Chest CT 12/14/23 22:26 IMPRESSION: No acute abnormalities in the chest. Electronically Signed: Zaki Boland MD at 23:17 EDT , Discharge Plan Triage Chief Complaint: Fall ED Provider: Keith Mercer Dx/Rx/DC Orders Clinical Impression: Chest wall injury, Fall down steps, Abrasion of hip, right Instructions: ED Chest Wall Contusion Prescriptions: No Action NK [facility] Care Provider: [facility] Referrals[place] [Primary Care Provider] - 1 Week Activity Restrictions/Additional Instructions: CT of your chest negative for any fracture or acute process. Use Motrin or Tylenol every 6 hours as needed. Take deep breaths. Follow-up with your doctor. Print Language: Macedonian Disposition Disposition: Home, Self Care Discharge Date/Time: 12/14/23 23:51
== END 2023-12-14 23:51 | disposition home or self-care (01) ==
PROVIDERS: Emergency Provider Emergency Medicine; Visit Provider Emergency Medicine
DX: S29.009A Unspecified injury of muscle and tendon of unspecified wall of thorax, initial encounter (principal); S70.211A Abrasion, right hip, initial encounter; F17.210 Nicotine dependence, cigarettes, uncomplicated; W10.9XXA Fall (on) (from) unspecified stairs and steps, initial encounter
CPT/HCPCS: 71250; 99282

== ENCOUNTER → 2025-03-03 | Outpatient (CLI) | payer OTHER, SELFPAY ==
--- NOTE | 2025-03-03 08:38 | RAD_ITS ---
PROCEDURE: KNEE 3 VIEWS 03/03/2025 REASON FOR EXAM: ARTHRITIS TECHNIQUE: KNEE 3 VIEWS Laterality: Left COMPARISON: None. FINDINGS: BONES: No acute fracture or focal osseous lesion. JOINTS: No dislocation. The joint spaces are normal. SOFT TISSUES: The soft tissues are unremarkable. RAD/Knee 3 Views IMPRESSION: No acute osseous abnormality seen. Reading Location: [id number]
--- NOTE | 2025-03-03 08:38 | RAD_ITS ---
PROCEDURE: CERV SPINE 2 OR 3 VIEWS 03/03/2025 REASON FOR EXAM: ARTHRITIS TECHNIQUE: CERV SPINE 2 OR 3 VIEWS COMPARISON: None. FINDINGS: BONES: No fracture or focal osseous lesion. Anatomic spinal alignment. DISC/DEGENERATIVE CHANGES: Disc spaces are preserved. SOFT TISSUES: No acute abnormality seen. RAD/Cerv Spine 2 or 3 Views IMPRESSION: NEGATIVE CERVICAL SPINE. Reading Location: [id number]
--- NOTE | 2025-03-03 08:38 | RAD_ITS ---
PROCEDURE: HAND 2 VIEWS 03/03/2025 REASON FOR EXAM: ARTHRITIS TECHNIQUE: HAND 2 VIEWS Laterality: Left COMPARISON: None. FINDINGS: BONES: No acute fracture or focal osseous lesion. JOINTS: No dislocation. The joint spaces are normal. SOFT TISSUES: The soft tissues are unremarkable. RAD/Hand 2 Views IMPRESSION: NEGATIVE HAND SERIES Reading Location: [id number]
--- NOTE | 2025-03-03 08:38 | RAD_ITS ---
PROCEDURE: HAND 2 VIEWS 03/03/2025 REASON FOR EXAM: ARTHRITIS TECHNIQUE: HAND 2 VIEWS Laterality: Right COMPARISON: None. FINDINGS: BONES: No acute fracture or focal osseous lesion. JOINTS: No dislocation. The joint spaces are normal. SOFT TISSUES: The soft tissues are unremarkable. RAD/Hand 2 Views IMPRESSION: NEGATIVE HAND SERIES Reading Location: [id number]
--- NOTE | 2025-03-03 08:38 | RAD_ITS ---
PROCEDURE: KNEE 3 VIEWS 03/03/2025 REASON FOR EXAM: ARTHRITIS TECHNIQUE: KNEE 3 VIEWS Laterality: Right COMPARISON: None. FINDINGS: BONES: No acute fracture or focal osseous lesion. JOINTS: No dislocation. The joint spaces are normal. SOFT TISSUES: The soft tissues are unremarkable. RAD/Knee 3 Views IMPRESSION: No acute osseous abnormality seen. Reading Location: [id number]
--- OUTSIDE RECORDS SUMMARY | 2025-03-03 09:10 | XMS RPT_ITS | CCD ---
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 Name Role Phone CASE PINEDO Unavailable Unavailable CASE PINEDO Unavailable Unavailable UNGPRINCE, REMUS A Unavailable Unavailable GLORIA ROCHA Unavailable Unavailable [facility], [place] Primary Care Unavailable Gloria Love Referring Unavailable Gloria Love Attending Unavailable Problems Problem Classification Problem Date Documented Da te Episodic/Chronic Other non-traumatic joint disorders (1 source) Other specified arthritis, unspecified site; Translations: [Other specified arthritis, unspecified site] Onset: 02-17-2025 Chronic Unclassified (1 source) Unknown / UNK(Unknown) Onset: 07-02-2018 Results Test Name Value Interpretation Reference Range Facility SHANTEL by IFA Screenon 07-06-20 18 SHANTEL by IFA Screen SEE BELOW Normal [facility] Comment on above: Result Comment: SHANTEL Negative NEGAT Normal range : negative at <1:80 serum dilution. Approximately 6% of patients with connective tissue diseases with low positive EIA values are negative by IFA. Recommend follow-up with specific antinuclear antibodies if clinically indicated. SHANTEL Titer Negative NEGAT Normal range : negative at <1:80 serum dilution. SHANTEL Pattern SEE BELOW Not applicable for negative result. Performing Laboratory: [facility] [address] [place] [address] Performed By: #### A PTT #### [place] [address] Smooth Muscle Ab Scron 07-06 Smooth Muscle Ab Scr SEE BELOW Normal [facility] Comment on above: Result Comment: Smooth Muscle Ab Pnl Neg ative NEGAT Normal range : negative at a 1:20 serum dilution. Performing Laboratory: [facility] [address] [place] [address] Performed By: #### A PTT #### [facility] [address] [place] [address] Hepatitis A Totalon 07-04-20 18 Hepatitis A Total SEE BELOW Normal [facility] Comment on above: Result Comment: Hepatitis A Ab Total Pos itive AB NEGAT Performing Laboratory: [facility] [address] [place] [address] Performed By: #### A PTT #### [facility] [address] [place] [address] Iron % Saturationon 07-04-20 18 Iron % Saturation 25 % Normal 20-55 [facility] Comment on above: Performed By: #### APTT #### [place] [address] Iron Binding Cap. 257 ug/dL Normal 250-450 [facility] Comment on above: Performed By: #### APTT #### [place] [address] Iron Serum 65 ug/dL Normal 65-175 [facility] Comment on above: Performed By: #### APTT #### [place] [address] Activated PTTon 07-03-2018 aPTT Coag time (Bld) 27.4 s Normal 23.0-32.4 [facility] Comment on above: Result Comment: Note: New Reference Rang e Unfractionated Heparin Therapeutic Ranges: Standard Heparin Nomogram: [...] laboratory APTT reagent in use throughout the [facility]. Performed By: #### A PTT #### [place] [address] Mwbyo-0-Wnbwayidztcbe 2017 Unaev-6-Mrdbdvk psin 142 mg/dL Normal 90-200 [facility] Comment on above: Performed By: #### PT #### [facility] [address] [place] [id number] CASE MGT INIT Gurpreet 2017 CASE MGT INIT MARTHA HNO ID: [id number]: Franchesca Marquez (Sw)e: Care ManagementAuthor Type: Social WorkerType: Care Mgt Initial AssessmentFiled: 07/03/2018 11:49 AMNote Text:CARE MANAGEMENT: ASSESSMENT AND DISCHARGE PLANSERVICE DATE: 07/03/2018SERVICE TIME: 11:38 AMPRIMARY CARE PHYSICIAN:NonePhone:ADMISSION STATUS: InpatientNeeds Prior to Discharge: To Be DeterminedMEDICAL:Patient/Represen tative Stated Goals:To have reduction in painTo return home to life as it wasHealth Insurance: [facility] MEDICAIDCaresourcealth Issues Impacting Discharge Plan: NoneLast Admission Date: noneIs this Within the Past 30 days? NoAdvance Directive:Current Advance Directive: NoneCare Channel Opener Outsoles Attempted to Assist with AD Completion: YesAction: Patient UnwillingHealth Literacy:1. How often do you need to have someone help you when you readinstructions, pamphlets, or other written material from your doctor orpharmacy? Never - 12. How confident are you filling out medical forms by yourself? Extremely- 1If Patient scores > 3 on either question, the following interventions wereput into place:Patient did not score > 3FUNCTIONAL AND COGNITIVE/BEHAVIORALPRIOR TO ADMISSION:Baseline Mental Status: Alert AND Oriented, Person, Place , Time andSituationFunctional Status: IndependentDoes Patient Currently Receive Any Community Services or Home Care? NoneEquipment Prior to Admission: NoneHas the Patient Been in a Alf Facility in the Past 30 days?N/ASOCIAL:Living Arrangement: HomeLives With: Daughter (9 yrs old)Financial Resources: DisabledPrimary Contact: Extended Emergency Contact InformationPrimary Emergency Contact: Leonel Jean Cwcrpnjd: MotherSupportive: YesOther Important Patient Contacts: NoneCaregiver Assessment:Caregiver is ready, willing and able to meet the patient's needs asrecommended by the inter-professional team? No Caregiver NeededPatient's transition needs and plan for meeting these needs:Does the patient have an acute stroke diagnosis, or has the patient had astroke during this admission? NoMedication Adherence:I am convinced of the importance of my prescription medication: Agreemostly - 0I worry that my prescription medication will do more harm than good to meDisagree mostly - 0I feel financially burdened by my ubs-rx-uoistj expenses for myprescription medication: Disagree mostly -0Patient is categorized as low risk < 2Are you interested in bedside delivery of your medications? NoFood Concerns:In the Last Month, Have You had Trouble Getting Food? No trouble gettingfoodDuring the Last Month, Have You Worried Whether Your Food Would Run OutBefore You Had Enough Money to Buy More? NoIs the Patient Psychosocially Complex? 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 Would prefer to see MD in [place] if possible. Discusswith MD.Pt states he is and his mother, Shelbi Jean, is his legal NOK. Pt declined to complete advance directives at this time.SW to follow for d/c needsSIGNATURE: ILYA Campbell PATIENT NAME: Saturnino JeanDATE: July 03, 2018 : 11:38 AM PAGER/CONTACT #: [phone] Normal [facility] CHEST 1 VIEWon 07-03-2018 CHEST 1 VIEW Performed at [facility] APPROVED BY: HANH OG MD CHEST RADIOGRAPH: [...] No radiographic evidence of acute cardiopulmonary abnormality. Normal [facility] CONSULTon 07-03-2018 CONSULT HNO ID: [id number] thor: Gloriamary kay Walls: GastroenterologyAuthor Type: PhysicianType: ConsultsFiled: 07/03/2018 6:43 PMNote Text:INITIAL CONSULT GASTROENTEROLOGYSERVICE DATE: 07/03/2018SERVICE TIME: 9:35 AMConsulting Service: Hospital medicineOpinion/advice regarding: jaundice/hepatitisSubjectiveHPI: This is a 32 year old male with PTSD and hereditary spherocytosiswho presents with abdominal pain and vomiting.He states yesterday he woke up with sharp epigastric pain; he felt thatgoing to the bathroom may relieve it however after passing stool hecontinued to have the pain. Several hours later, he developed nausea andvomiting. He states he vomited a lot yesterday. No blood or bile notedin his emesis. He tried to eat bread once but vomited it up, did notnotice if it made his abdominal pain worse. He reports laying flatexacerbated his epigastric pain. It was severe enough he couldn't stand orclimb stairs.He denies any recent travel or eating seafood recently, no IV drug usehistory, no illicit drug use otherwise. He denies jaundice or change inskin. He is sexually active, had 2 partners in the past year. He isregularly active and is an outdoors kind of person.He denies any fevers, chills, or night sweats. Has not noticed decreasedappetite or unexpected weight change. No history of hepatitis or HIV.States has been vaccinated against Hepatitis B.He denies history of asthma/copd or lung disease. There is a significantfamily history for cancer but he is unsure what type.PAST MEDICAL HISTORYDiagnosis Date- PTSD (post-traumatic stress disorder)No past surgical history on file.No family history on file.Social HistorySubstance Use Topics- Smoking status: Current Every Day Smoker Packs/day: 0.50 Years: 6.00 Types: Cigarettes- Smokeless tobacco: Not on file- Alcohol use 18.0 oz/week 12 Cans of Beer (12oz) per weekMEDICATIONS:Prior to Admission Medications:No prescriptions on file.Current hospital medications:aluminum-magnesium hydroxide-simethicone 200-200-20 mg/5 mL 30 mL(MAALOX,MYLANTA,MAG-AL PLUS) 30 mL ORAL DAILY PRNdocusate sodium 100 mg cap(s) (COLACE) 100 mg ORAL BID PRNheparin 5,000 Units injection 5,000 Units SUBCUTANEOUS q 8 HHYDROmorphone HCl 0.2 mg injection (DILAUDID) 0.2 mg INTRAVENOUS q 4 H PRNlevoFLOXacin iv piggyback 750 mg in D5W 150 mL (LEVAQUIN) 750 mgINTRAVENOUS DAILYmagnesium hydroxide 400 mg/5 mL 30 mL (MOM) 30 mL ORAL DAILY PRNNaCl 0.9% iv infusion 75 mL/hr INTRAVENOUS CONTINUOUSondansetron (PF) 4 mg injection (ZOFRAN) 4 mg INTRAVENOUS q 6 H PRNondansetron 4 mg tab(s) (ZOFRAN) 4 mg ORAL q 6 H PRNpolyethylene glycol 3350 17 g packet (MIRALAX, GLYCOLAX) 17 g ORAL DAILYPRNALLERGIESNo Known AllergiesGI SPECIFIC REVIEW OF SYSTEMS:Positive for abd pain and vomiting, resolvedNegative for decreased appetiteNegative for change in weightNo alteration in bowel habitsDenies bloody stools or black stoolsOTHER ROS:Negative for lightheadedness/dizziness, vision changes, hearing changes,sore throat, dysphagia, odynophagia, chest pain, shortness of breath,wheezing, cough.ObjectivePHYSICAL EXAM:BP 106/51 Pulse 61 Temp 36.7 ?C (98.1 ?F) (Oral) Resp 18 Ht193 cm (6' 3.98) Wt 77.3 kg (170 lb 6.7 oz) SpO2 99% BMI 20.75kg/m?GENERAL- AAO x 3, no distressHEENT: Moist mucus membranes, no carotid bruit. No ulcerations noted inmouth.LUNGS: Clear to auscultation bilaterally, no wheezes noted. Good air entrybilaterallyCARDIAC: S1, S2 heard, no murmur appreciatedABDOMEN: Soft, tender to deep palpation of the right upper quadrant. Noguarding or rigidity. Normal bowel soundsEXTREMITIES: No pedal edema, capillary refill good.DATA:Diagnostic Tests Reviewed for Today's Visit:Most recent labs and imaging results.Impression/Recommendations CT findings of hepatitis without laboratory correlationMacrocytic anemiaHypoalbuminemiaMarijuana abuseCocaine abuseMild hyperbilirubinemiaHypoproteinemia without proteinuria or evidence of kidney injuryLeukocytosisHyperinflated lungsPlan:- will discuss results of CT abd with radiology, pancreatic head appearsenlarged to me; discussed with radiology attending, pancreas appearsnormal- check GGT, alpha-1 antitrypsin (lungs look hyperinflated to me,suggestive of emphysema)- await acute hepatitis panel- check shantel and antismooth muscle abs- unsure whether this is true hepatitisWill discuss with Dr. Gabe DiorI evaluated the patient and personally participated in the stone components. I agree with the resident's findings and plan as documented and havediscussed the case and management of the patient's care with the resident.Pt's epig pain, n/v has resolved. LFT's unimpressive. Outside CT and USreports reviewed. Liver on US described as nl. Pt to see hematology.Also should f/up w PCP, Christine Bishop rec'd.Signature: Gloria Rocha, MDDate: 07/03/2018Time: 6:33 PMSIGNATURE: Glen Grant MD PATIENT NAME: Saturnino JeanDATE: July 03, 2018 : 9:35 AM PAGER/CONTACT #: [phone] Normal [facility] Comprehensive Panelon 2017 ALP enzyme act/vol 62 U/L Normal 46-116 [facility] Comment on above: Performed By: #### CBC1 #### [address] [address] Bilirubin mass conc 1.6 mg/dL High 0.2-1.0 [facility] Comment on above: Performed By: #### CBC1 #### [facility] [address] [place], [place] [address] Protein mass conc 6.4 g/dL Normal 6.4-8.2 [facility] Comment on above: Performed By: #### CBC1 #### [address] [address] ALT enzyme act/vol 34 U/L Normal 12-78 [facility] Comment on above: Performed By: #### CBC1 #### [place] [address] AST enzyme act/vol 16 U/L Normal 9-37 [facility] Comment on above: Performed By: #### CBC1 #### [facility] [address] [place], [place] [address] Creatinine mass conc 0.78 mg/dL Normal 0.67-1.17 [facility] Comment on above: Performed By: #### CBC1 #### [facility] [address] [place], [place] [address] Albumin mass conc 3.5 g/dL Normal 3.4-5.0 [facility] Comment on above: Performed By: #### CBC1 #### [facility] [address] [place], [place] [address] Anion gap molar conc 9 mmol/L Normal 8-16 [facility] Comment on above: Performed By: #### CBC1 #### [facility] [address] [place], [place] [address] Calcium mass conc 8.2 mg/dL Low 8.5-10.1 [facility] Comment on above: Performed By: #### CBC1 #### [facility] [address] [place], [place] [address] CO2 molar conc 28 mmol/L Normal 21-32 [facility] Comment on above: Performed By: #### CBC1 #### [facility] [address] [place], [place] [address] Glucose mass conc 98 mg/dL Normal 70-99 [facility] Comment on above: Performed By: #### CBC1 #### [facility] [address] [place], [place] [address] Urea nitrogen mass conc 6 mg/dL Low 7-18 [facility] Comment on above: Performed By: #### CBC1 #### [facility] [address] [place], [place] [address] Chloride molar conc 106 mmol/L Normal 98-107 [facility] Comment on above: Performed By: #### CBC1 #### [facility] [address] [place], [place] [address] Potassium molar conc 3.7 mmol/L Normal 3.5-5.1 [facility] Comment on above: Performed By: #### CBC1 #### [facility] [address] [place], [place] [address] Sodium molar conc 139 mmol/L Normal 136-145 [facility] Comment on above: Performed By: #### CBC1 #### [facility] [address] [place], [place] [address] Protein mass conc 5.9 g/dL Low 6.4-8.2 [facility] Comment on above: Performed By: #### P14 #### [facility] [address] [place], [place] [address] ALP enzyme act/vol 60 U/L Normal 46-116 [facility] Comment on above: Performed By: #### P14 #### [facility] [address] [place], [place] [address] Bilirubin mass conc 1.4 mg/dL High 0.2-1.0 [facility] Comment on above: Performed By: #### P14 #### [facility] [address] [place], [place] [address] AST enzyme act/vol 23 U/L Normal 9-37 [facility] Comment on above: Performed By: #### P14 #### [facility] [address] [place], [place] [address] ALT enzyme act/vol 32 U/L Normal 12-78 [facility] Comment on above: Performed By: #### P14 #### [facility] [address] [place], [place] [address] Creatinine mass conc 0.63 mg/dL Low 0.67-1.17 [facility] Comment on above: Performed By: #### P14 #### [facility] [address] [place], [place] [address] Albumin mass conc 3.2 g/dL Low 3.4-5.0 [facility] Comment on above: Performed By: #### P14 #### [facility] [address] [place], [place] [address] Anion gap molar conc 10 mmol/L Normal 8-16 [facility] Comment on above: Performed By: #### P14 #### [facility] [address] [place], [place] [address] Calcium mass conc 7.6 mg/dL Low 8.5-10.1 [facility] Comment on above: Performed By: #### P14 #### [facility] [address] [place], [place] [address] CO2 molar conc 26 mmol/L Normal 21-32 [facility] Comment on above: Performed By: #### P14 #### [facility] [address] [place], [place] [address] Glucose mass conc 93 mg/dL Normal 70-99 [facility] Comment on above: Performed By: #### P14 #### [facility] [address] [place] [address] Urea nitrogen mass conc 6 mg/dL Low 7-18 [facility] Comment on above: Performed By: #### P14 #### [facility] [address] [place] [address] Chloride molar conc 108 mmol/L High 98-107 [facility] Comment on above: Performed By: #### P14 #### [facility] [address] [address] Potassium molar conc 3.5 mmol/L Normal 3.5-5.1 [facility] Comment on above: Performed By: #### P14 #### [facility] [address] [place] [address] Sodium molar conc 140 mmol/L Normal 136-145 [facility] Comment on above: Performed By: #### P14 #### [facility] [address] [address] Cult Bloodon 07-03-2018 Cult Blood Test performed at [facility] No growth Normal [facility] Comment on above: Performed By: #### APTT #### [facility] [address] [place] [address] Cult Urineon 07-03-2018 Cult Urine Test performed at [facility] No growth Normal [facility] Comment on above: Performed By: #### CBC1 #### [facility] [address] [place] [address] Direct Bilirubinon 8 Bilirubin mass conc 0.55 mg/dL High 0.00-0.20 [facility] Comment on above: Performed By: #### CBC1 #### [facility] [address] [place], [place] [address] Ferritinon 07-03-2018 Ferritin mass conc 570.80 ng/mL High 26.00-388.00 [facility] Comment on above: Performed By: #### PT #### [facility] [address] [place], [place] [address] Folateon 07-03-2018 Folate 26.70 ng/mL High 3.10-17.50 [facility] Comment on above: Performed By: #### PT #### [facility] [address] [place], [place] [address] GGTon 07-03-2018 Gamma glutamyl transferase enzyme act/vol 42 U/L Normal 15-85 [facility] Comment on above: Performed By: #### PT #### [facility] [address] [place], [place] [address] HISTORY PHYSICALon 8 HISTORY PHYSICAL HNO ID: [id number]: Zina CoradoService: [facility] MedicineAuthor Type: PhysicianType: HANDPFiled: 07/03/2018 5:12 AMNote Text:[facility] MEDICINEHISTORY AND PHYSICAL EXAMAUTHOR: Zina Corado MD PATIENT NAME: Saturnino JeanDATE: July 02, 2018 11:55 PM , : 1985Primary Care Physician: Garland Kilpatrick MDNIGHT AND WEEKEND COVERAGE:From 7am - 7pm, please call Sound Physician on dutyAfter 7pm, please call cross cover pager #[phone] COMPLAINT: abdominal pain and yellow coloration of urineHPI: This is a 32 year old male with significant PMH of PTSD, familyhistory of a Hereditary spherocytosis, presented with feeling tired andweak unable to eat, nausea, vomiting, abdominal pain and yellow colorationof urine for last 2 days that is gradually worsening and today patientcannot keep anything down and he visited the emergency department forthat. Patient feels chills but no fever documented in the ED patient wasfound to have elevated WBC abnormal ultrasonogram of liver suggestive ofhepatitis and elevated bilirubin consistent with hepatitis.The patient wasseen and examined at bedside upon arrival to [facility] floor. Appears to bealert and awake with no apparent distress and is able to answer simplequestions. Feels much better since coming to hospital.Has no other new active complaints. On direct questioning, denied anyongoing resting chest pain, SOB, orthopnea, cough, fever, ongoingpalpitation, active abdominal pain, dysuria, burning During urinationany other and GI complaints.PAST MEDICAL HISTORYDiagnosis Date- PTSD (post-traumatic stress disorder)PSH:No surgeryFamily History:Positive for Hereditary spherocytosisNo family history of sudden cardiac , structural malformation,coagulopathy, or any other significant family hisotry that can contributeto the chief complaint/current illness.Social HistorySubstance Use Topics- Smoking status: Current Every Day Smoker Packs/day: 0.50 Years: 6.00 Types: Cigarettes- Smokeless tobacco: Not on file- Alcohol use 18.0 oz/week 12 Cans of Beer (12oz) per weekHOME MEDICATIONS:No prescriptions prior to admission.MEDICATIONS:Current hospital medications:aluminum-magnesium hydroxide-simethicone 200-200-20 mg/5 mL 30 mL(MAALOX,MYLANTA,MAG-AL PLUS) 30 mL ORAL DAILY PRNdocusate sodium 100 mg cap(s) (COLACE) 100 mg ORAL BID PRN[START ON 07/03/2018] heparin 5,000 Units injection 5,000 UnitsSUBCUTANEOUS q 8 HHYDROmorphone HCl 0.2 mg injection (DILAUDID) 0.2 mg INTRAVENOUS q 4 H PRN[START ON 07/03/2018] levoFLOXacin iv piggyback 750 mg in D5W 150 mL(LEVAQUIN) 750 mg INTRAVENOUS DAILYmagnesium hydroxide 400 mg/5 mL 30 mL (MOM) 30 mL ORAL DAILY PRNNaCl 0.9% iv infusion 75 mL/hr INTRAVENOUS CONTINUOUSondansetron (PF) 4 mg injection (ZOFRAN) 4 mg INTRAVENOUS q 6 H PRNondansetron 4 mg tab(s) (ZOFRAN) 4 mg ORAL q 6 H PRNpolyethylene glycol 3350 17 g packet (MIRALAX, GLYCOLAX) 17 g ORAL DAILYPRNALLERGIESNo Known AllergiesROSPAIN ASSESSMENT: GENERAL: negative for any fever, night sweats, anorexia or any deformityor diaphoresisHEENT: No eye discahrge, photophobia, hoarseness of voice, discharge fromear, sinus drainageNECK: Negative for lumps, goiter, and significant neck swelling or neckrigidityRESPIRATORY: Negative for hemoptysis, purulent sputum, ongoing restingshortness of breath, tb contacts or exposureCARDIOVASCULAR: Negative for ongoing resting chest pain, or ongoingpalpitations.GI: Negative for Dysphagia, hematemesis, melena, rectal bleeding.Positive for pain and nauseaGU: Negative for hematuria, retention, incontinence, STD history, orgenital mass or ulcerMUSCULOSKELETAL: Negative for joint swelling, erythema, hematoma orfractures., deformity or muscular atrophy.SKIN: Negative for ulcers, bleeding, erythema or tumors, de/pigmentation.HEMATOLOGY: Negative for prolonged bleeding, or swollen nodesENDOCRINE: Negative for cold or heat intolerance, ongoing polyuria orpolydipsia and goiterNEURO: No paralysis, seizures or tremors or loss of consciousness,seizures, acute loss of vision, persistent diplopia, new onsetparasthesias paralysis, weakness in any limbs.PSYCH: Negative for hallucination, or suicidal ideationPertinent positives and negatives are noted in the HPI, all other systemsare reviewed and negative.ObjectivePhysical ExamBP 113/58 Pulse 72 Temp (Src) 99.7 (Oral) Resp 18 Ht 6' 3.984(1.93m) Wt 170 lb 6.7 oz (77.3kg) SpO2 100% BMI 20.75 kg/(m2).General: No acute distress and Alert AND AwakeHEENT: NC/AT, PERRLA, no icterus. OP clear and no exudatesNeck: Supple, There is no LAD or thyromegaly.Cardio: S1+S2 WNL; No S3 or S4; no MGRsPulmonary: Lungs clear to auscultation bilaterally, no audible wheezingAbdomen: Soft, mild tender LUQ,non-distended, Bowel sounds audible, Nopalpable massesExtremities: All peripheral pulses are palpable. No calf tenderness.Asterixis and tremor is absent.Musculoskeletal: No joint swelling, deformity, or tendernessNeuro exam: Alert and awake. No new focal neuro deficit. Sensation grosslynormalDerm: Negative for rashes and lesions.Pressure ulcer/decibiti: NoneAdmission Lab/Imaging/Procedure workup:Most recent labs and imaging results.Results for orders placed or performed during the hospital encounter of07/02/18XR CHEST 1V FRONTALResult Value Ref Range Front Desk Coordinator CHEST RADIOGRAPH: AP view of the chest.Exam Date/Time: 07/02/2018 11:45 PMIndication: Chest pain or SOB, pleurisy or effusion suspectedComparison: No relevant prior study available for comparison.RESULTS:Lines, Tubes, and Devices: NoneLungs and Pleura: The lungs are clear. No pleural effusion orpneumothorax.Cardiomediastinal silhouette: The mediastinal and cardiac silhouette arenormalin size and contour.Other: The bones of the chest are unremarkable.IMPRESSION:No radiographic evidence of acute cardiopulmonary abnormality.Active Hospital Problems Diagnosis- Hepatitis- Jaundice- Abdominal pain- Dehydration- Lactic acid acidosisAnticoagulant AND Antiplatelet Medications Start Dose Route Frequency Ordered Stop 07/03/18 0600 heparin 5,000 Units injection (Medical At Risk ) 5,000 Units SUBCUTANEOUS EVERY 8 HOURS 07/02/18 8185 --ASSESSMENT AND PLAN# Acute abdominal pain with Jaundice - due to Hepatitis vs Gastroenteritis Currently alert and awake, hemodynamically stable.BUN/Cr = WNLLipase= WNLUtox = negativeHepatitis panel and HIV orderedUS abdomen = Possible hepatitis [paper report on chart]IV fluid + Protonix + Zofran + Pain medicationIV Levofloxacin pending culture resportsGI consult, if indicated in AMClose monitoring of vitals# Family H/o Hereditary Spherocytosis Awaiting blood film results# H/O PTSD- Stable# VTE Prophylaxis: Lovenox 40mg Sub Q Daily# NUTRITION: Eating and drinking diet# IVF's: NS @ 60 ml/hour# Fall Precaution: Yes# Disposition: Home# Code Status: Full CodeThe Patient was counseled at bedside about clinical status,laboratory/imaging results, diagnoses, and treatment plan and verbalizedunderstanding. Additionally the risks, consequences, alternatives and sideeffects of the prescribed medications were explained and verbalizedunderstanding and agreed.Total Time Spent on Patient Admission 45 minutesSIGNATURE: Zina oCrado MD PATIENT NAME: Saturnino JeanDATE: July 02, 2018 : 11:55 PM PAGER/CONTACT #: [phone] Normal [facility] HIV Screenon 07-03-2018 HIV Screen Negative Normal Nonreactive [facility] Comment on above: Performed By: #### CBC1 #### [facility] [address] [place] [address] Haptoglobinon 07-03-2018 Haptoglobin 154.0 mg/dL Normal 30.0-200.0 [facility] Comment on above: Performed By: #### PT #### [place] [address] Hemogramon 07-03-2018 Erythrocyte distribution width Ratio (RBC) 11.5 % Low 11.6-14.4 [facility] Comment on above: Performed By: #### CBC1 #### [place] [address] Hematocrit Volume Fraction (Bld) 37.8 % Low 40.1-51.0 [facility] Comment on above: Performed By: #### CBC1 #### [place] [address] Hemoglobin mass conc (Bld) 12.9 g/dL Low 13.7-17.5 [facility] Comment on above: Performed By: #### CBC1 #### [place] [address] MCH Entitic mass (RBC) 33.2 pg High 25.7-32.2 [facility] Comment on above: Performed By: #### CBC1 #### [place] [address] MCHC mass conc (RBC) 34.1 % Normal 32.3-36.5 [facility] Comment on above: Performed By: #### CBC1 #### [place] [address] MCV Entitic volume (RBC) 97.2 fL High 83.2-95.6 [facility] Comment on above: Performed By: #### CBC1 #### [place] [address] Platelet mean volume Entitic volume (Bld) 9.9 fL Normal 8.7-12.0 [facility] Comment on above: Performed By: #### CBC1 #### [facility] [address] [place] [address] Platelets #/vol (Bld) 345 thou/cmm Normal 141-365 [facility] Comment on above: Performed By: #### CBC1 #### [facility] [address] [place] [address] RBC #/vol (Bld) 3.89 mil/cmm Low 4.63-6.08 [facility] Comment on above: Performed By: #### CBC1 #### [facility] [address] [place] [address] RDW SD 40.7 fl Normal 36.1-45.8 [facility] Comment on above: Performed By: #### CBC1 #### [facility] [address] [place] [address] WBC #/vol (Bld) 13.41 thou/cmm High 4.23-9.07 [facility] Comment on above: Performed By: #### CBC1 #### [facility] [address] [place] [address] Hemogram/Diffon 07-03-2018 Abs Immature Grans 0.04 thou/cmm Normal 0.00-0.05 [facility] Comment on above: Performed By: #### CBC1 #### [facility] [address] [place] [address] Abs. Baso 0.04 thou/cmm Normal 0.01-0.08 [facility] Comment on above: Performed By: #### CBC1 #### [facility] [address] [place] [address] Abs. [place] 0.70 thou/cmm Normal 0.30-0.82 [facility] Comment on above: Performed By: #### CBC1 #### [place] [address] Abs. Neut (ANC) 5.62 thou/cmm High 1.78-5.38 [facility] Comment on above: Performed By: #### CBC1 #### [place] [address] Basophils/100 WBC (Bld) 0.5 % Normal [facility] Comment on above: Performed By: #### CBC1 #### [facility] [address] [place] [address] Eosinophils #/vol (Bld) 0.20 thou/cmm Normal 0.04-0.54 [facility] Comment on above: Performed By: #### CBC1 #### [facility] [address] [address] Eosinophils/100 WBC (Bld) 2.3 % Normal [facility] Comment on above: Performed By: #### CBC1 #### [facility] [address] [place] [address] Erythrocyte distribution width Ratio (RBC) 11.6 % Normal 11.6-14.4 [facility] Comment on above: Performed By: #### CBC1 #### [place] [address] Hematocrit Volume Fraction (Bld) 39.9 % Low 40.1-51.0 [facility] Comment on above: Performed By: #### CBC1 #### [place] [address] Hemoglobin mass conc (Bld) 13.3 g/dL Low 13.7-17.5 [facility] Comment on above: Performed By: #### CBC1 #### [place] [address] Immature Grans 0.50 % Normal [facility] Comment on above: Performed By: #### CBC1 #### [facility] [address] [place] [address] Lymphocytes #/vol (Bld) 2.13 thou/cmm Normal 0.84-2.85 [facility] Comment on above: Performed By: #### CBC1 #### [facility] [address] [place] [address] Lymphocytes/100 WBC (Bld) 24.4 % Normal [facility] Comment on above: Performed By: #### CBC1 #### [place] [address] MCH Entitic mass (RBC) 33.6 pg High 25.7-32.2 [facility] Comment on above: Performed By: #### CBC1 #### [facility] [address] [place] [address] MCHC mass conc (RBC) 33.3 % Normal 32.3-36.5 [facility] Comment on above: Performed By: #### CBC1 #### [facility] [address] [place] [address] MCV Entitic volume (RBC) 100.8 fL High 83.2-95.6 [facility] Comment on above: Performed By: #### CBC1 #### [facility] [address] [place] [address] Monocytes/100 WBC (Bld) 8.0 % Normal [facility] Comment on above: Performed By: #### CBC1 #### [facility] [address] [place] [address] Platelet mean volume Entitic volume (Bld) 9.7 fL Normal 8.7-12.0 [facility] Comment on above: Performed By: #### CBC1 #### [facility] [address] [place] [address] Platelets #/vol (Bld) 312 thou/cmm Normal 141-365 [facility] Comment on above: Performed By: #### CBC1 #### [facility] [address] [address] RBC #/vol (Bld) 3.96 mil/cmm Low 4.63-6.08 [facility] Comment on above: Performed By: #### CBC1 #### [facility] [address] [place] [address] RDW SD 42.2 fl Normal 36.1-45.8 [facility] Comment on above: Performed By: #### CBC1 #### [facility] [address] [place] [address] Seg Neutrophil 64.3 % Normal [facility] Comment on above: Performed By: #### CBC1 #### [place] [address] WBC #/vol (Bld) 8.74 thou/cmm Normal 4.23-9.07 [facility] Comment on above: Performed By: #### CBC1 #### [facility] [address] [place] [address] Hep. B Core Ab IgMon 018 HB Core Ab IgM Negative Normal Negative [facility] Comment on above: Performed By: #### CBC1 #### [place] [address] Hep. B Surface Abon 07-03-20 18 Hep. B Surface Ab > 1000.0 Normal [facility] Comment on above: Result Comment: Hep B. Antibody < 10.0 m IU/mL is negative. Hep B. Antibody > or = 10.0 mIU/mL is positive. Performed By: #### P T #### [place] [address] Hep. B Surface Agon 07-03-20 18 Hep.B Surface Ag Negative Normal Negative [facility] Comment on above: Performed By: #### CBC1 #### [place] [address] Hepatitis A Ab, IgMon 2017 HAV Ab IgM Negative Normal Negative [facility] Comment on above: Performed By: #### PT #### [place] [address] Hepatitis C Antibodyon 07-03 Hepatitis C Ab Negative Normal Negative [facility] Comment on above: Performed By: #### CBC1 #### [place] [address] LD,Total Bloodon 07-03-2018 LD,Total Blood 135 U/L Normal 84-246 [facility] Comment on above: Performed By: #### PT #### [place] [address] Lactic Acidon 07-03-2018 Lactate molar conc 1.3 mmol/L Normal 0.4-2.0 [facility] Comment on above: Performed By: #### LAC #### [place] [address] Lipase Bloodon 12-14-2018 Lipase Blood 127 U/L Normal 73-393 [facility] Comment on above: Performed By: #### CBC1 #### [facility] [address] [place] [address] MDRD GFRon 07-03-2018 GFR/1.73 sq M predicted among non-blacks MDRD vol rate/area (S/P/Bld) mL/min/{1.73_m2} Normal >60mL/min/1. 73m2 [facility] Comment on above: Result Comment: If the patient is Alyse n Polish, multiply the result by 1.210. Performed By: #### G FR #### [facility] [address] [place] [address] Magnesium Bloodon 07-03-2018 Magnesium mass conc 1.9 mg/dL Normal 1.6-2.6 [facility] Comment on above: Performed By: #### MAG #### [facility] [address] [place] [address] Phosphorus Bloodon 8 Phosphate mass conc 2.6 mg/dL Normal 2.5-4.9 [facility] Comment on above: Performed By: #### PHOS #### [facility] [address] [place] [address] Protimeon 07-03-2018 INR Coag RelTime (PPP) 1.06 {INR} Normal 0.90-1.30 [facility] Comment on above: Result Comment: Note: Reference Range Ch maryanne Vitamin K Antagonist (VKA) Therapeutic Range: INR 2 to 3 (Target INR of 2.5) Note: For patients treated with VKA drugs, such as warfarin, the [employer] 2012 Guideline recommends [...] 2.5 to 3.5 target INR of 3). Leonardtt GH, et al. Chest 2012; 141:7S-47S Gena RA, et al. JAC 2017; 70: 252-289 Performed By: #### P T #### [facility] [address] [place] [address] Prothrombin time (PT) Coag time (PPP) 11.0 s Normal 9.7-13.0 [facility] Comment on above: Performed By: #### PT #### [facility] [address] [place] [address] Reticulocyte Counton 018 Absolute Reticulocyte 0.146 mil/cmm High 0.026-0.095 [facility] Comment on above: Performed By: #### PT #### [facility] [address] [address] Immature Retic Fractions 12.0 % Normal 2.3-13.4 [facility] Comment on above: Performed By: #### PT #### [facility] [address] [place] [address] Retic Hemoglobin Equivalent 38.6 pg High 27.9-38.4 [facility] Comment on above: Performed By: #### PT #### [facility] [address] [place] [address] 3.6 % High 1.0-2.2 [facility] Comment on above: Performed By: #### PT #### [place] [address] THERAPY NTon 07-03-2018 THERAPY NT HNO ID: [id number] thor: Adilene OlsenPtTess BlankService: Physical TherapyAuthor Type: Physical TherapistType: Therapy (PT/OT/Speech/Resp)Filed: 07/03/2018 10:01 AMNote Text:PHYSICAL THERAPY MISSED VISITSERVICE DATE: 07/03/2018SERVICE TIME: 0959 to 09ROOM: [id number] Evaluation. Patient not seen due to has no needs .SIGNATURE: Adilene Blank PT PATIENT NAME: Saturnino JeanDATE: July 03, 2018 : 10:00 AM Normal [facility] Urinalysis Routineon 018 Bacteria LM.HPF #/area (Urine sed) NONE Normal None [facility] Comment on above: Performed By: #### URIN2 #### [facility] [address] [place] [address] Ep Cells Urine 0.2 /hpf Normal 0.0-5.0 [facility] Comment on above: Performed By: #### URIN2 #### [facility] [address] [address] Hyaline Cast 0.0 /lpf Normal 0.0-1.0 [facility] Comment on above: Performed By: #### URIN2 #### [facility] [address] [place] [address] RBC,Urine 2.1 /hpf Normal 0.0-5.0 [facility] Comment on above: Performed By: #### URIN2 #### [facility] [address] [address] WBC, Urine 0.2 /hpf Normal 0.0-5.0 [facility] Comment on above: Performed By: #### URIN2 #### [facility] [address] [place] [address] Appearance Nom (U) CLEAR Normal [facility] Comment on above: Performed By: #### URIN2 #### [facility] [address] [place] [address] Bilirubin Urine Negative Normal Negative [facility] Comment on above: Performed By: #### URIN2 #### [facility] [address] [address] Color Nom (U) YELLOW Normal [facility] Comment on above: Performed By: #### URIN2 #### [facility] [address] [address] Glucose Ql (U) Negative Normal Negative [facility] Comment on above: Performed By: #### URIN2 #### [place] [address] Hemoglobin,Urin e Negative Normal Negative [facility] Comment on above: Performed By: #### URIN2 #### [facility] [address] [address] Ketone Urine Negative Normal Negative [facility] Comment on above: Performed By: #### URIN2 #### [facility] [address] [address] Leukocytes Esterase Negative Normal Negative [facility] Comment on above: Performed By: #### URIN2 #### [facility] [address] [address] Nitrites Urine Negative Normal Negative [facility] Comment on above: Performed By: #### URIN2 #### [facility] [address] [place] [address] pH (U) 7.5 [pH] Normal 5.0-8.0 [facility] Comment on above: Performed By: #### URIN2 #### [facility] [address] [address] Protein mass conc (U) Negative Normal Negative [facility] Comment on above: Performed By: #### URIN2 #### [facility] [address] [address] Specific [place], Ur 1.014 Normal 1.005-1.030 [facility] Comment on above: Performed By: #### URIN2 #### [facility] [address] [place] [address] Urobilinogen,Ur 0.2 EU/dL Normal 0.0-1.0 [facility] Comment on above: Performed By: #### URIN2 #### [facility] [address] [address] Urine Drug Screenon 07-03-20 18 Urine Barbiturates Non-detected Normal Non-Detected [facility] Comment on above: Performed By: #### CBC1 #### [facility] [address] [address] Urine Amphetamine Non-detected Normal Non-Detected [facility] Comment on above: Performed By: #### CBC1 #### [facility] [address] [address] Urine Benzodiazepine Non-detected Normal Non-Detected [facility] Comment on above: Performed By: #### CBC1 #### [facility] [address] [place], [place] [address] Urine Cocaine Metab Non-detected Normal Non-Detected [facility] Comment on above: Performed By: #### CBC1 #### [facility] [address] [place], [place] [address] Urine Opiate see below Normal Non-Detected [facility] Comment on above: Result Comment: Detected (unconfirmed) Performed By: #### C BC1 #### [facility] [address] [place] [address] Urine PCP Non-detected Normal Non-Detected [facility] Comment on above: Performed By: #### CBC1 #### [facility] [address] [address] Urine THC see below Normal Non-Detected [facility] Comment on above: Result Comment: Detected (unconfirmed) Urine Drug Cutoff [...] medical diagnostic purposes only. Performed By: #### C BC1 #### [place] [address] Vitamin B12on 07-03-2018 Cobalamin (Vitamin B12) mass conc 521 pg/mL Normal 193-986 [facility] Comment on above: Performed By: #### PT #### [place] [address] Encounters Encounter Date Encounter Type Care Provider Facility Start: 02-21-2025 [facility] Facility:[facility] Start: 07-02-2018 End: 07-03-2018 Patient encounter procedure [facility] PINEDO [facility] Payers Date Payer Category Payer Self-pay 2025 Unknown [id number] Unknown [id number] Summary Purpose Family History No Family History Records FoundNo Family History Records FoundNo Family History Records Found Advance Directives No Advanced Directives Records FoundNo Advanced Directives Records FoundNo Advanced Directives Records Found Hospital Course Note HNO ID: [id number]: Bernadette Sánchezrvice: [facility] MedicineAuthor Type: PhysicianType: Discharge SummariesFiled: 07/03/2018 6:28 PMNote Text: DISCHARGE SUMMARYPATIENT NAME: Saturnino Jean Code Status: Not on fileMRN: [id number] Readmission Risk Score: 7 The 30 day readmissions risk score is derived from an internallyvalidated risk model which evaluates patient level characteristics,utilization history, medication orders and lab results up until the day ofdischarge. Patients with a score of 40 or above are considered highestrisk for readmission. Specific patient level drivers will be listed at thebottom of the summary.Admission Information Admission Information ADMIT DATE: 07/02/2018DISCHARGE DATE: 07/03/2018[facility] Doctor: Case Jean Care Provider: Fátima Suh Medical Team Members: Treatment Team:Attending Provider: Case Jean Service: Juliano Andres RedConsulting: Gloria Beltran CONDITION AT DISC (more content not included)... Additional Source Comments (unrecognized sect ion and content) No Status Records FoundNo Status Records FoundNo Status Records Found INFORMATION SOURCE (unrecogn ized section and content) DATE CREATED AUTHOR 07/06/2018 [facility] DATE CREATED AUTHOR AUTHOR'S ORGANIZ ATION 12/13/2018 [facility] DATE CREATED AUTHOR AUTHOR'S ORGANIZ ATION 02/19/2025 [facility] FOR RECORDS PERTAINING TO PATIENTS WHO ARE OR HAVE BEEN ENROLLED IN A CHEMICAL DEPENDENCY/SUBSTANCEABUSE PROGRAM, SOME INFORMATION MAY BE OMITTED. This clinical summary was aggregated from multiple sources. Caution should be exercised in using it in the provision of clinical care. This summary normalizes information from multiple sources, and as a consequence, information in this document may materially change the coding, format and clinical context of patient data. In addition, data may be omitted in some cases. CLINICAL DECISIONS SHOULD BE BASED ON THE PRIMARY CLINICAL RECORDS. [facility]. provides no warranty or guarantee of the accuracy or completeness of information in this document.
== END | disposition home or self-care (01) ==
LOC: RAD 08:32
PROVIDERS: Referring Provider Chiropractor; Visit Provider Chiropractor
DX: M13.80 Other specified arthritis, unspecified site (principal)
CPT/HCPCS: 72040; 73120; 73562

== ENCOUNTER 2025-06-24 09:42 | Emergency (ER) | payer OTHER, MEDICAID, SELFPAY ==
[2025-06-24 09:43] VITALS: BP 137/93; PULSE 92; RESP 16; TEMP 36.6; O2SAT 99
[2025-06-24 09:45] VITALS: BP 123/80; PULSE 77; RESP 15; TEMP 36.9; O2SAT 98; BMI 18.0
[2025-06-24 10:11] VITALS: BP 123/80; PULSE 66; RESP 15; TEMP 36.7; O2SAT 100
--- NOTE | 2025-06-24 11:20 | EDS_ITS ---
HPI History of Present Illness Chief Complaint: General Illness Narrative Narrative: Pt is a 39-year-old male who is presenting to the ER with his girlfriend with chief complaint of red raised painful nodules to bilateral anterior shins. Patient stated that he was playing soccer with his son 1 week ago, and a ball accidentally hit him in the testicle. Patient had pain in his testicle at that time, patient never sought medical attention. Patient currently states the right testicle hurts minimally, not significant. Patient has no difficulty urinating, no urinary frequency urgency or burning. Patient has no swelling or ecchymosis to the scrotum. Patient thought the injury to the scrotum was causing the red nodules to his bilateral anterior shins. Patient has classic presentation of erythema nodosum. Patient states that last week he has had some flulike symptoms along with nausea and vomiting. Patient thought nausea vomiting is related to the injury which it could have been. Patient has current no headache, neck pain. No fever or chills. No chest pain or shortness of breath. No difficulty urinating or with erection or ejaculation. Minimal right scrotal pain. No acute complaints. REVIEW OF SYSTEMS: Unless otherwise stated in this report the patient's positive and negative responses for review of systems for constitutional, eyes, ENT, cardiovascular, respiratory, gastrointestinal, neurological, , musculoskeletal, and integument systems and related systems to the presenting problem are either stated in the history of present illness or were not pertinent or were negative for the symptoms and/or complaints related to the presenting medical problem. Nurse's notes and vital signs reviewed. The patient is not hypoxic. Vital signs reviewed and patient is not hypoxic. General: The patient appears well and in no apparent distress. Patient is resti ng comfortably on cart. Not toxic, lethargic, or listless. Skin: Warm, dry, no pallor noted. There is no rash noted. Head: Normocephalic, atraumatic Eye: Normal conjunctiva, no drainage, EOMI. PERRL. Ears, Nose, Mouth, and Throat: oral mucosa is moist. Cardiovascular: Regular Rate and Rhythm, no murmurs, gallops, or rubs Respiratory: Patient is in no distress, no accessory muscle use, lungs are clear to auscultation, no wheezing, rales or rhonchi Back: non-tender, GI: Soft, no tenderness to palpation, no masses appreciated. No rebound, guarding, or rigidity noted. No bilateral inguinal tenderness, swelling, or masses. : Patient is circumcised, patient has minimal tenderness to palpation to the right testicle. No pain to left testicle. Patient has no bilateral inguinal tenderness to palpation. No signs of hernia bilateral. No signs of redness, erythema, or ecchymosis to scrotum. Musculoskeletal: The patient has full range of motion of all extremities and joints with no difficulty. Patient has no motor, no sensory deficits. Neurological: A&O x4, normal speech, no focal neurological deficits. Psychiatric: Cooperative [facility] Medical History (Updated 06/24/25 @ 10:[address] Hermes Gandhi DO) IBS (irritable bowel syndrome) Post traumatic stress disorder (PTSD) Hearing problem Home Medications ?Medication ?Instructions ?Recorded ?Last Taken ?Type tramadol 50 mg tablet 50 mg PO Q4H PRN PRN Pain 3 days 06/24/25 Unknown Rx #12 tabs Allergy/AdvReac Type Severity Reaction Status Date / Time No Known Allergies Allergy Verified 06/24/25 09:45 Family History Uncle Hereditary spherocytosis Brother Anxiety PTSD (post-traumatic stress disorder) Surgical History [place] teeth extracted Social History Smoking Status: Current every day smoker tobacco type: cigarettes EXAM Physical Exam Const Vital Signs: 06/24/25 09:43 06/24/25 09:45 06/24/25 09:56 Temperature 97.9 F 98.4 F Temperature Source Temporal Oral Pulse Rate 92 77 Respiratory Rate 16 15 Respiratory Effort Normal Non-Labored Respiratory Pattern Normal Blood Pressure 137/93 H 123/80 H Blood Pressure Mean 107 94 Pulse Ox 99 98 Oxygen Delivery Method Room Air Room Air 06/24/25 10:11 Temperature 98.1 F Temperature Source Pulse Rate 66 Respiratory Rate 15 Respiratory Effort Respiratory Pattern Blood Pressure 123/80 H Blood Pressure Mean 94 Pulse Ox 100 Oxygen Delivery Method MDM MDM MDM Narrative Medical decision making narrative: Education was done at bedside on treating erythema nodosum symptomatically. Education of flulike symptoms, and contusion to scrotum/testicle was discussed as well. Patient has no acute indication for testing urine or testicles. Patient has no symptoms urinating, patient has minimal pain to right testicle at this time. Education was done with patient and girlfriend on erythema nodosum, and treating anti-inflammatory spots as and patient's recent viral or flulike symptoms that could be leading to this. Patient was given education. No questions at discharge. Discharge Plan Triage Chief Complaint: General Illness ED Provider: Hermes Gandhi Dx/Rx/DC Orders Clinical Impression: Erythema nodosum Instructions: Erythema Nodosum Prescriptions: New tramadol 50 mg tablet 50 mg PO Q4H PRN PRN (Reason: Pain) 3 Days Qty: 12 0RF [facility] Care Provider: [facility] Referrals: [place] [Primary Care Provider, None] Activity Restrictions/Additional Instructions: You may alternate Tylenol and either Motrin, Advil, ibuprofen every 4 hours as needed for pain/fever. Take anti-inflammatories with food or drink to help buffer the medication. MAX dose of Tylenol is 3000 mg a day. MAX dose of Motrin, Advil, ibuprofen is 2400 mg a day. For the next 1 to 2 weeks, do not use heat as discussed. Use ice 20 minutes on, 20 minutes off Use pain medication if needed, and you may use the Ultram with either Tylenol or anti-inflammatories along with ice if needed for pain. Print Language: Vietnamese Disposition Disposition: Home, Self Care Discharge Date/Time: 06/24/25 10:55
== END 2025-06-24 10:55 | disposition home or self-care (01) ==
PROVIDERS: Emergency Provider Emergency Medicine; Visit Provider Emergency Medicine
DX: L52 Erythema nodosum (principal)
CPT/HCPCS: 99282